=== PATIENT | female | born 1990 | race American Indian/Alaskan Native ===

== ENCOUNTER 2017-03-31 20:14 | Outpatient (CLI) | payer MEDICAID, OTHER ==
[2017-03-31 20:36] VITALS: BP 126/74
== END 2017-03-31 21:55 | disposition home or self-care (01) ==
LOC: TRG 20:14
PROVIDERS: ATTEND Obstetrics & Gynecology
DX: O47.1 False labor at or after 37 completed weeks of gestation (principal); Z3A.37 37 weeks gestation of pregnancy
CPT/HCPCS: 59025

== ENCOUNTER 2017-07-29 06:48 | Emergency (ER) | payer MEDICAID ==
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
[2017-07-29] MEDS ORDERED: TORADOL IM ONE (08:17)
[2017-07-29 09:09] VITALS: BP 130/72
== END 2017-07-29 09:08 | disposition home or self-care (01) ==
LOC: ED 06:48
DX: S90.02XA Contusion of left ankle, initial encounter (principal); S86.912A Strain of unspecified muscle(s) and tendon(s) at lower leg level, left leg, initial encounter; J45.909 Unspecified asthma, uncomplicated; V49.49XA Driver injured in collision with other motor vehicles in traffic accident, initial encounter; Y93.89 Activity, other specified; Y92.89 Other specified places as the place of occurrence of the external cause; Y99.8 Other external cause status
CPT/HCPCS: 96372; 99283; J1885

== ENCOUNTER 2017-08-09 23:53 | Emergency (ER) | payer MEDICAID ==
[2017-08-10] MEDS ORDERED: ASPIRIN PO ONE (00:49)
[2017-08-10] MEDS ORDERED: ZOFRAN ODT PO ONE (00:50)
[2017-08-10 01:31] LABS: BUN/Creatinine Ratio 40; Blood Urea Nitrogen 20 mg/dL (7-17); Calcium 9.4 mg/dL (8.4-10.2); Hemolysis Index 2
[2017-08-10 01:38] LABS: Basophils # (Auto) 0.1 K/mm3 (0.0-0.1); Basophils % (Auto) 0.6 % (0.0-1.8); Eosinophils # (Auto) 0.2 K/mm3 (0.0-0.4); Eosinophils % (Auto) 2.5 % (0.0-4.3); Hematocrit 36.4 % (30.3-42.9); Lymphocytes # (Auto) 2.3 K/mm3 (1.2-5.4); Lymphocytes % (Auto) 25.6 % (13.4-35.0); Mean Corpuscular HGB Conc 33 % (30-34); Mean Corpuscular Volume 78 fl (79-97); Monocytes # (Auto) 0.7 K/mm3 (0.0-0.8); Platelet Count 245 K/mm3 (140-440); Red Blood Count 4.67 M/mm3 (3.65-5.03); Red Cell Distribution Width 16.1 % (13.2-15.2)
[2017-08-10 01:45] LABS: Mean Corpuscular Hemoglobin 26 pg (28-32)
[2017-08-10 09:13] VITALS: BP 127/76
[2017-08-10] MEDS ORDERED: TORADOL IM ONE (10:05)
[2017-08-10] MEDS ORDERED: TORADOL IV ONE (10:29)
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
== END 2017-08-10 11:20 | disposition home or self-care (01) ==
LOC: ED 23:53
DX: S20.219A Contusion of unspecified front wall of thorax, initial encounter (principal); J45.909 Unspecified asthma, uncomplicated; Z98.51 Tubal ligation status; Z88.8 Allergy status to other drugs, medicaments and biological substances; F17.200 Nicotine dependence, unspecified, uncomplicated; X58.XXXA Exposure to other specified factors, initial encounter; Y93.89 Activity, other specified; Y92.89 Other specified places as the place of occurrence of the external cause; Y99.8 Other external cause status
CPT/HCPCS: 36415; 71260; 80048; 84484; 84703; 85025; 93005; 93010; 96372; 96374; 99284; J1885; Q9967; Q0162

== ENCOUNTER 2017-09-16 00:14 | Emergency (ER) | payer MEDICAID ==
[2017-09-16 00:50] VITALS: BP 116/74
[2017-09-16] MEDS ORDERED: ASPIRIN PO ONE (00:54)
[2017-09-16 01:22] LABS: Basophils # (Auto) 0.1 K/mm3 (0.0-0.1); Basophils % (Auto) 0.8 % (0.0-1.8); Eosinophils # (Auto) 0.3 K/mm3 (0.0-0.4); Eosinophils % (Auto) 3.4 % (0.0-4.3); Hematocrit 32.9 % (30.3-42.9); Hemoglobin 10.8 gm/dl (10.1-14.3); Lymphocytes # (Auto) 2.7 K/mm3 (1.2-5.4); Lymphocytes % (Auto) 30.9 % (13.4-35.0); Mean Corpuscular HGB Conc 33 % (30-34); Mean Corpuscular Volume 78 fl (79-97); Monocytes # (Auto) 0.8 K/mm3 (0.0-0.8); Monocytes % (Auto) 9.5 % (0.0-7.3); Platelet Count 309 K/mm3 (140-440); Red Cell Distribution Width 16.2 % (13.2-15.2)
[2017-09-16 01:36] LABS: BUN/Creatinine Ratio 40; Blood Urea Nitrogen 20 mg/dL (7-17); Hemolysis Index 49
[2017-09-16 01:53] LABS: Mean Corpuscular Hemoglobin 26 pg (28-32)
== END 2017-09-16 04:00 | disposition left against medical advice (07) ==
LOC: ED 00:14
DX: R07.89 Other chest pain (principal); Z53.21 Procedure and treatment not carried out due to patient leaving prior to being seen by health care provider
CPT/HCPCS: 36415; 80048; 84484; 84703; 85025; 93005; 93010

== ENCOUNTER 2017-09-16 04:43 | Emergency (ER) | payer MEDICAID ==
--- NOTE | 2017-09-16 06:46 | Emergency Department Report ---
ED Abdominal Pain HPI - General Chief Complaint: Abdominal Pain Stated Complaint: ABN VAG BLEEDING Time Seen by Provider: 09/16/17 06:25 Source: patient Mode of arrival: Ambulatory Limitations: No Limitations - History of Present Illness Initial Comments: There is a 26-year-old female that presents to emergency room with complaints of intermittent abdominal pain and intermittent vaginal bleeding over the past 3 months. Patient states the pain is worse when she is on her cycle. Patient states the pain has been as bad as 10 out of 10 but is fluctuating. Patient states the pain right now is a 6 out of 10. Patient states the pain is always in left lower quadrant. Patient states she is not on any control at this time. Patient states she had a child 3 months ago. Patient complains of a occasional nausea and vomiting as well -: Gradual, month(s) (pain started 3 months ago) Location: LLQ Radiation: none Migration to: no migration Severity scale (0 -10): 6 Quality: stabbing, aching Consistency: intermittent Improves With: rest Worsens With: movement Context: recent surgery/procedure Associated Symptoms: denies: nausea, vomiting, diarrhea, fever, chills, constipation, dysuria, hematemesis, hematochezia, melena, hematuria, anorexia, syncope - Related Data LMP (females 10-50): last week Home Medications Medication Instructions Recorded Confirmed Last Taken SEROquel 100 mg PO HS 08/10/17 08/10/17 Unknown Previous Rx's Medication Instructions Recorded Last Taken Type Ibuprofen 800 mg PO Q8H #30 tablet 08/10/17 Unknown Rx Acetaminophen/Codeine [Tylenol 1 tab PO Q6H PRN #15 tab 09/16/17 Unknown Rx /Codeine # 3 tab] Allergies Allergy/AdvReac Type Severity Reaction Status Date / Time aripiprazole [From Abilify] Allergy Hives Verified 09/16/17 11:07 chlorpromazine Allergy Hives Verified 09/16/17 11:07 [From Thorazine] ED Review of Systems ROS: Stated complaint: ABN VAG BLEEDING Other details as noted in HPI Comment: All other systems reviewed and negative Constitutional: denies: chills, fever Eyes: denies: eye pain, eye discharge, vision change ENT: denies: ear pain, throat pain Respiratory: denies: cough, shortness of breath, wheezing Cardiovascular: denies: chest pain, palpitations Endocrine: no symptoms reported Gastrointestinal: abdominal pain, nausea, vomiting. denies: diarrhea Genitourinary: denies: urgency, dysuria, discharge Musculoskeletal: denies: back pain, joint swelling, arthralgia Skin: denies: rash, lesions Neurological: denies: headache, weakness, paresthesias Psychiatric: denies: anxiety, depression Hematological/Lymphatic: denies: easy bleeding, easy bruising ED Past Medical Hx - Past Medical History Previous Medical History?: Yes Hx Hypertension: No Hx Diabetes: No Hx Deep Vein Thrombosis: No Hx Renal Disease: No Hx Sickle Cell Disease: No Hx Seizures: Yes (last seizures 3 mths ago) Hx Asthma: Yes Hx HIV: No Additional medical history: fibroids - Surgical History Past Surgical History?: Yes Hx Cholecystectomy: Yes Additional Surgical History: Tubal Ligation - Social History Smoking Status: Never Smoker Substance Use Type: None - Medications Home Medications: Home Medications Medication Instructions Recorded Confirmed Last Taken Type Ibuprofen 800 mg PO Q8H #30 tablet 08/10/17 Unknown Rx SEROquel 100 mg PO HS 08/10/17 08/10/17 Unknown History Acetaminophen/Codeine [Tylenol 1 tab PO Q6H PRN #15 tab 09/16/17 Unknown Rx /Codeine # 3 tab] ED Physical Exam - General Limitations: No Limitations General appearance: alert, in no apparent distress - Head Head exam: Present: atraumatic, normocephalic - Eye Eye exam: Present: normal appearance - ENT ENT exam: Present: mucous membranes moist - Neck Neck exam: Present: normal inspection - Respiratory Respiratory exam: Present: normal lung sounds bilaterally. Absent: respiratory distress - Cardiovascular Cardiovascular Exam: Present: regular rate, normal rhythm. Absent: systolic murmur, diastolic murmur, rubs, gallop - GI/Abdominal GI/Abdominal exam: Present: soft, tenderness (left lower quadrant tenderness), normal bowel sounds - Extremities Exam Extremities exam: Present: normal inspection - Back Exam Back exam: Present: normal inspection - Neurological Exam Neurological exam: Present: alert, oriented X3 - Psychiatric Psychiatric exam: Present: normal affect, normal mood - Skin Skin exam: Present: warm, dry, intact, normal color. Absent: rash ED Course Vital Signs 09/16/17 09/16/17 09/16/17 04:59 06:24 06:50 Temperature 97.4 F L Pulse Rate 68 79 Respiratory 14 16 18 Rate Blood Pressure 129/83 Blood Pressure 127/68 [Right] O2 Sat by Pulse 99 98 Oximetry 09/16/17 11:39 Temperature 98.9 F Pulse Rate 85 Respiratory 16 Rate Blood Pressure Blood Pressure 135/85 [Right] O2 Sat by Pulse 98 Oximetry - Reevaluation(s) Reevaluation #1: Discussed results of blood and ultrasound with the patient. Due to the fact the patient had such severe left lower quadrant pain and tenderness we'll move forward with a CAT scan. Patient agrees with plan of care. 09/16/17 08:26 Reevaluation #2: Costal results with patient. Patient stable for discharge. We'll discharge patient home with medications and prescriptions. Patient given all discharge instructions. Patient instructed to follow-up with SENIOR MECHANICAL PROJECT ENGINEER for further evaluation and treatment of irregular menstrual period and uterine fibroid. 09/16/17 11:08 ED Medical Decision Making - Radiology Data Radiology results: report reviewed Ultrasound and CT of abdomen discussed and reviewed with patient - Medical Decision Making 26-year-old female that presents emergency room with 3 months long of abdominal pain and irregular vaginal bleeding. Patient found to have on ultrasound either fibroids. CT scan was negative for acute findings. - Differential Diagnosis uterine fibroid. Abdominal pain. Irregular vaginal bleeding. Critical care attestation.: If time is entered above; I have spent that time in minutes in the direct care of this critically ill patient, excluding procedure time. ED Disposition Clinical Impression: Vaginal bleeding, Uterine fibroid Abdominal pain Qualifiers: Abdominal location: left lower quadrant Qualified Code(s): R10.32 - Left lower quadrant pain Disposition: TO HOME OR SELFCARE Is pt being admited?: No Does the pt Need Aspirin: No Condition: Stable Instructions: Uterine Fibroids (ED), Abdominal Pain (ED) Additional Instructions: Patient to follow-up with primary care in 3-5 days. Patient to follow-up with GEOPHYSICS SCIENTIST in 2-4 days. Patient to increase water and rest. Patient to take meds as directed. Patient to take Tylenol or ibuprofen when necessary for pain. Patient to take vitamin. Prescriptions: Acetaminophen/Codeine [Tylenol /Codeine # 3 tab] 1 tab PO Q6H PRN #15 tab PRN Reason: Pain Referrals: PRIMARY CARE, [Primary Care Provider] - 3-5 Days Time of Disposition: 11:10
--- NOTE | 2017-09-16 07:19 | Ultrasound Report ---
FINAL REPORT EXAM: US PELVIC COMPLETE HISTORY: abnl vaginal bleeding TECHNIQUE: Transabdominal imaging was obtained of the pelvis. FINDINGS: The uterus is anteverted measuring 8.7 cm x 5.5 cm x 6.1 cm. The myometrium is homogeneous. The endometrial thickness is 4.9 mm. There are 2 fibroids along the fundus the larger measuring to 2 cm in diameter. Free fluid is not seen. The left ovary is normal size contour and echotexture measuring 3.2 cm x 2.5 cm x 2.8 cm. The right ovary is normal size contour and echotexture measuring 3.5 cm x 2.2 cm x 2.3 cm. There are benign-appearing follicles in the right ovary. IMPRESSION: Two small fibroids in the fundus of the uterus noted. Normal-appearing endometrium. Normal ovaries.
--- NOTE | 2017-09-16 07:29 | Ultrasound Report ---
FINAL REPORT EXAM: US TRANSVAGINAL HISTORY: abnl vaginal bleeding TECHNIQUE: Transvaginal imaging was obtained of the pelvis. FINDINGS: The uterus is anteverted measuring 8.7 cm x 5.5 cm x 6.1 cm. The myometrium is inhomogeneous. The abdomen thickness is 4.9 mm. There are 2 small fibroids along the fundus of the uterus the larger measuring 2 cm in diameter. Free fluid is not seen. Both ovaries are appropriate size contour and echotexture revealing benign follicles bilaterally. The right ovary measures 3.5 cm x 2.2 cm x 2.3 cm. The left ovary measures 3.2 cm x 2.5 cm x 2.8 cm. IMPRESSION: Two small fibroids in the fundus of the uterus the larger measuring 2 cm in diameter. Normal-appearing endometrium measuring 4.9 mm in thickness. Normal ovaries.
--- NOTE | 2017-09-16 10:34 | Cat Scan Report ---
CT ABDOMEN PELVIS WITH CONTRAST: HISTORY: abdominal pain. COMPARISON: Pelvic ultrasound performed the same day. TECHNIQUE: Helical CT in 1.25mm intervals following IV contrast. Sagittal and coronal reconstructions. FINDINGS: Lung bases: Normal. Liver: Normal. Biliary system: Cholecystectomy. No biliary dilatation is appreciated. Pancreas: Normal. Spleen: Normal. Kidneys/ureters/bladder: Normal. Adrenal glands: Normal. Aorta: Normal. Intestines: Evaluation of the GI tract is limited without oral contrast. There is no evidence for obstruction or focal inflammation. The appendix is not confidently identified, correlate with the patient's surgical history. If further evaluation of the GI tract is needed, repeat exam with oral contrast would be helpful. Appendix: Normal. Pelvic viscera: Within normal limits. Small fibroids seen on ultrasound are not appreciated on CT. Ascites: None. Adenopathy: None. Musculoskeletal: Normal. IMPRESSION: No acute process is identified in the abdomen or pelvis.
[2017-09-16] MEDS ORDERED: TORADOL IV ONE (10:49)
[2017-09-16] MEDS ORDERED: TORADOL ONE ×2 (11:16)
[2017-09-16 11:39] VITALS: BP 135/85
== END 2017-09-16 11:43 | disposition home or self-care (01) ==
LOC: ED 04:43
DX: D25.9 Leiomyoma of uterus, unspecified (principal); Z88.8 Allergy status to other drugs, medicaments and biological substances
CPT/HCPCS: 36415; 74177; 76830; 76856; 84484; 96374; 99284; J1885; Q9967

== ENCOUNTER 2017-09-17 08:27 | Emergency (ER) | payer MEDICAID ==
[2017-09-17 08:41] VITALS: BP 125/70
[2017-09-17] MEDS ORDERED: ULTRAM PO ONE (09:27)
[2017-09-17 10:04] LABS: Bacteria,Urine 1+ /HPF (Negative); Bilirubin,Urine NEG (Negative); Blood,Urine MOD (Negative); Color,Urine Yellow (Yellow); Mucus,Urine 3+ /HPF; Protein,Urine <15 mg/dL mg/dL (Negative); Urobilinogen,Urine < 2.0 mg/dL (<2.0)
[2017-09-17 10:08] LABS: Alanine Aminotransferase 13 units/L (7-56); Albumin 4.2 g/dL (3.9-5)
[2017-09-17 10:55] LABS: Bilirubin,Direct < 0.2 mg/dL (0-0.2)
--- NOTE | 2017-09-17 12:15 | Emergency Department Report ---
Chief Complaint: Back Pain/Injury Stated Complaint: BACK/ABDOMINAL/CHEST PAIN Time Seen by Provider: 09/17/17 09:22 - HPI History of Present Illness: The patient is a 26-year-old female who presents for evaluation of abdominal and back pain. The patient reports 1 week of lower abdominal pain, radiating to the back, 10/10 in severity, crampy in quality, constant. The patient denies fever, chills, night sweats, diarrhea, blood in the stool, dark tarry stool, dysuria, hematuria, flank pain, genital discharge, inability to pass flatus. - Exam Vital Signs: Vital Signs 09/17/17 08:35 Temperature 98.9 F Pulse Rate 70 Respiratory 18 Rate Blood Pressure 125/70 O2 Sat by Pulse 100 Oximetry MSE screening note: Focused history and physical exam performed. Due to findings the following was ordered: ED Disposition for MSE Condition: Undetermined Referrals: PRIMARY CARE, [Primary Care Provider] - 3-5 Days
--- NOTE | 2017-09-17 12:37 | Emergency Department Report ---
ED Female HPI - General Chief complaint: Back Pain/Injury Stated complaint: BACK/ABDOMINAL/CHEST PAIN Time Seen by Provider: 09/17/17 09:22 Source: patient Mode of arrival: Ambulatory Limitations: No Limitations - History of Present Illness Initial comments: This is a 26-year-old -[place] female presents abnormal vaginal bleeding , lower abdominal, and back pain. Patient was seen in ER yesterday and diagnosed with fibroids and referred to [facility]. Patient reports trying to see [facility] yesterday and unable to receive an appointment. She reports abdominal pain for 1 week that is radiating to her back. Pain is a constant cramping that is 10 out of 10 on pain scale. The patient denies fever, chills, night sweats, diarrhea, blood in the stool, dark tarry stool, dysuria, hematuria, flank pain, genital discharge, inability to pass flatus. MD Complaint: vaginal bleeding, pelvic pain -: week(s) (one week) Location: other (lower abdomen) Radiation: L flank Severity: severe Severity scale (0 -10): 10 Quality: cramping, aching Consistency: constant Improves with: none Worsens with: none Are you Now?: No Last Menstrual Period: 09/14/17 EDC: 06/21/18 Associated Symptoms: vaginal bleeding, abdominal pain. denies: vaginal discharge, nausea/vomiting, fever/chills, headaches, loss of appetite, dysuria, hematuria, rash, seizure, shortness of breath, syncope, weakness - Related Data Sexually active: Yes : 4 Para: 4 A: 0 Home Medications Medication Instructions Recorded Confirmed Last Taken SEROquel 100 mg PO HS 08/10/17 08/10/17 Unknown Previous Rx's Medication Instructions Recorded Last Taken Type Ibuprofen 800 mg PO Q8H #30 tablet 08/10/17 Unknown Rx Acetaminophen/Codeine [Tylenol 1 tab PO Q6H PRN #15 tab 09/16/17 Unknown Rx /Codeine # 3 tab] Norgestimate-Ethinyl Estradiol 1 each PO DAILY #28 tablet 09/17/17 Unknown Rx [Sprintec 28 Day Tablet] Allergies Allergy/AdvReac Type Severity Reaction Status Date / Time aripiprazole [From [place]ic[place]ney] Allergy Hives Verified 09/16/17 16:35 chlorpromazine Allergy Hives Verified 09/16/17 16:35 [From Thorazine] ED Review of Systems ROS: Stated complaint: BACK/ABDOMINAL/CHEST PAIN Other details as noted in HPI Constitutional: no symptoms reported Respiratory: denies: cough, shortness of breath, wheezing Cardiovascular: denies: chest pain, palpitations Gastrointestinal: abdominal pain (cramping lower abdominal area). denies: nausea, vomiting, diarrhea, constipation Genitourinary: denies: urgency, dysuria, discharge Psychiatric: denies: anxiety, depression Hematological/Lymphatic: denies: easy bleeding, easy bruising ED Past Medical Hx - Past Medical History Previous Medical History?: Yes Hx Hypertension: No Hx Diabetes: No Hx Deep Vein Thrombosis: No Hx Renal Disease: No Hx Sickle Cell Disease: No Hx Seizures: Yes (last seizures 3 mths ago) Hx Asthma: Yes Hx HIV: No Additional medical history: fibroids - Surgical History Past Surgical History?: Yes Hx Cholecystectomy: Yes Additional Surgical History: Tubal Ligation - Social History Smoking Status: Never Smoker Substance Use Type: Non Opiate Pain - Medications Home Medications: Home Medications Medication Instructions Recorded Confirmed Last Taken Type Ibuprofen 800 mg PO Q8H #30 tablet 08/10/17 Unknown Rx SEROquel 100 mg PO HS 08/10/17 08/10/17 Unknown History Acetaminophen/Codeine [Tylenol 1 tab PO Q6H PRN #15 tab 09/16/17 Unknown Rx /Codeine # 3 tab] Norgestimate-Ethinyl Estradiol 1 each PO DAILY #28 tablet 09/17/17 Unknown Rx [Sprintec 28 Day Tablet] ED Physical Exam - General Limitations: No Limitations General appearance: alert, in no apparent distress - Respiratory Respiratory exam: Present: normal lung sounds bilaterally. Absent: respiratory distress - Cardiovascular Cardiovascular Exam: Present: regular rate, normal rhythm, normal heart sounds. Absent: systolic murmur, diastolic murmur, rubs, gallop - GI/Abdominal GI/Abdominal exam: Present: soft, normal bowel sounds. Absent: distended, tenderness, guarding, rebound, rigid, organomegaly, mass - Neurological Exam Neurological exam: Present: alert, oriented X3, normal gait - Psychiatric Psychiatric exam: Present: normal affect, normal mood - Skin Skin exam: Present: warm, dry, intact, normal color. Absent: rash ED Course Vital Signs 09/17/17 08:35 Temperature 98.9 F Pulse Rate 70 Respiratory 18 Rate Blood Pressure 125/70 O2 Sat by Pulse 100 Oximetry ED Medical Decision Making - Medical Decision Making 26 y.o. -[place] female that presents with lower abdominal cramping radiating to her low back and abnormal vaginal bleeding times one week. Patient examined by me and Dr. Correa and stable. No distress noted. Vitals stable. Normal assessment. Obtained a UA, LFT, and serum hCG, all unremarkable. Advised symptoms could be related to fibroids as discussed yesterday on ER visit. This starts Sprintec. Discussed risk and benefits of OC. Advised to follow up with [facility]. Discharged home. Continue taking NSAIDs for pain. Critical care attestation.: If time is entered above; I have spent that time in minutes in the direct care of this critically ill patient, excluding procedure time. ED Disposition Clinical Impression: Abnormal menstrual cycle Fibroids Qualifiers: Uterine leiomyoma location: unspecified location Qualified Code(s): D25.9 - Leiomyoma of uterus, unspecified Disposition: TO HOME OR SELFCARE Is pt being admited?: No Does the pt Need Aspirin: No Condition: Stable Instructions: Uterine Fibroids (ED), Control Pills (ED) Additional Instructions: Take 1 contraceptive pill daily around the same time. Follow-up with [facility] for management of fibroids. Take Tylenol, ibuprofen, or naproxen for pain management. Follow-up with primary care in 2-3 days. Prescriptions: Norgestimate-Ethinyl Estradiol [Sprintec 28 Day Tablet] 1 each PO DAILY #28 tablet Referrals: [facility] [Outside] - 3-5 Days [facility] [Provider Group] - 3-5 Days [facility] [Provider Group] - 3-5 Days JALEEL COLON MD [Staff Physician] - 3-5 Days Time of Disposition: 12:49 Print Language: KAZAKH
== END 2017-09-17 16:30 | disposition home or self-care (01) ==
LOC: ED 08:27
DX: N92.6 Irregular menstruation, unspecified (principal); D25.9 Leiomyoma of uterus, unspecified; J45.909 Unspecified asthma, uncomplicated; Z90.49 Acquired absence of other specified parts of digestive tract; Z98.51 Tubal ligation status; Z88.8 Allergy status to other drugs, medicaments and biological substances
CPT/HCPCS: 36415; 80074; 81001; 83690; 84703; 99283

== ENCOUNTER 2017-09-24 01:47 | Emergency (ER) | payer MEDICAID ==
[2017-09-24] MEDS ORDERED: ASPIRIN PO ONE (02:04)
[2017-09-24 04:19] LABS: Basophils % (Auto) 0.4 % (0.0-1.8); Eosinophils # (Auto) 0.3 K/mm3 (0.0-0.4); Eosinophils % (Auto) 3.9 % (0.0-4.3); Hematocrit 34.7 % (30.3-42.9); Hemoglobin 11.8 gm/dl (10.1-14.3); Lymphocytes # (Auto) 2.2 K/mm3 (1.2-5.4); Lymphocytes % (Auto) 33.9 % (13.4-35.0); Mean Corpuscular HGB Conc 34 % (30-34); Mean Corpuscular Hemoglobin 27 pg (28-32); Mean Corpuscular Volume 78 fl (79-97); Monocytes # (Auto) 0.6 K/mm3 (0.0-0.8); Monocytes % (Auto) 10.1 % (0.0-7.3); Platelet Count 305 K/mm3 (140-440); Red Blood Count 4.45 M/mm3 (3.65-5.03); Red Cell Distribution Width 16.7 % (13.2-15.2)
[2017-09-24 04:25] LABS: BUN/Creatinine Ratio 30; Blood Urea Nitrogen 15 mg/dL (7-17); Calcium 9.2 mg/dL (8.4-10.2); Hemolysis Index 2
--- NOTE | 2017-09-24 07:20 | Emergency Department Report ---
ED Chest Pain HPI - General Chief Complaint: Chest Pain Stated Complaint: CHEST PAIN, BACK THROW UPC Time Seen by Provider: 09/24/17 07:20 Source: patient Mode of arrival: Ambulatory Limitations: No Limitations - History of Present Illness Initial Comments: Patient says she started having chest pain last night. Chest pain is intermittent. She also denies any abdominal pain, nausea or vomiting. MD Complaint: chest pain -: Last night Onset: during rest Pain Radiation: none Severity: moderate Severity scale (0 -10): 5 Quality: sharp Consistency: constant Improves With: nothing Worsens With: nothing re: denies: nausea, vomting Other Symptoms: denies: cough Treatments Prior to Arrival: none Aspirin use within the Past 7 Days: (0) No - Related Data On Oral Contraceptives: No Home Medications Medication Instructions Recorded Confirmed Last Taken SEROquel 100 mg PO HS 08/10/17 08/10/17 Unknown Previous Rx's Medication Instructions Recorded Last Taken Type Ibuprofen 800 mg PO Q8H #30 tablet 08/10/17 Unknown Rx Acetaminophen/Codeine [Tylenol 1 tab PO Q6H PRN #15 tab 09/16/17 Unknown Rx /Codeine # 3 tab] Norgestimate-Ethinyl Estradiol 1 each PO DAILY #28 tablet 09/17/17 Unknown Rx [Sprintec 28 Day Tablet] Ibuprofen [Motrin] 800 mg PO Q8HR PRN #20 tablet 09/24/17 Unknown Rx Allergies Allergy/AdvReac Type Severity Reaction Status Date / Time aripiprazole [From Abilify] Allergy Hives Verified 09/16/17 16:35 chlorpromazine Allergy Hives Verified 09/16/17 16:35 [From Thorazine] Heart Score - HEART Score History: Slightly suspicious EKG: Normal Age: < 45 Risk factors: No known risk factors Troponin: < normal limit HEART Score: 0 - Critical Actions Critical Actions: 0-3 pts:0.9-1.7%risk of adverse cardiac event.Candidate for discharge ED Review of Systems ROS: Stated complaint: CHEST PAIN, BACK THROW UPC Other details as noted in HPI Comment: All other systems reviewed and negative Constitutional: denies: chills, fever Eyes: denies: vision change ENT: denies: ear pain Respiratory: shortness of breath. denies: cough Cardiovascular: chest pain. denies: palpitations Endocrine: no symptoms reported Gastrointestinal: denies: abdominal pain, nausea, vomiting, diarrhea Genitourinary: denies: urgency, frequency Musculoskeletal: denies: back pain, joint swelling Skin: denies: rash, change in color Neurological: denies: headache, weakness, numbness, paresthesias Psychiatric: denies: anxiety, depression Hematological/Lymphatic: denies: easy bleeding, easy bruising ED Past Medical Hx - Past Medical History Previous Medical History?: Yes Hx Hypertension: No Hx Diabetes: Yes Hx Deep Vein Thrombosis: No Hx Renal Disease: No Hx Sickle Cell Disease: No Hx Seizures: Yes (last seizures 3 mths ago) Hx Asthma: Yes Hx HIV: No Additional medical history: fibroids - Surgical History Past Surgical History?: Yes Hx Cholecystectomy: Yes Additional Surgical History: Tubal Ligation - Social History Smoking Status: Never Smoker Substance Use Type: Alcohol - Medications Home Medications: Home Medications Medication Instructions Recorded Confirmed Last Taken Type Ibuprofen 800 mg PO Q8H #30 tablet 08/10/17 Unknown Rx SEROquel 100 mg PO HS 08/10/17 08/10/17 Unknown History Acetaminophen/Codeine [Tylenol 1 tab PO Q6H PRN #15 tab 09/16/17 Unknown Rx /Codeine # 3 tab] Norgestimate-Ethinyl Estradiol 1 each PO DAILY #28 tablet 09/17/17 Unknown Rx [Sprintec 28 Day Tablet] Ibuprofen [Motrin] 800 mg PO Q8HR PRN #20 tablet 09/24/17 Unknown Rx ED Physical Exam - General Limitations: No Limitations General appearance: alert, in no apparent distress - Head Head exam: Present: atraumatic, normocephalic, normal inspection - Eye Eye exam: Present: normal appearance, PERRL, EOMI Pupils: Present: normal accommodation - ENT ENT exam: Present: normal exam, normal orophraynx, mucous membranes moist - Neck Neck exam: Present: normal inspection, full ROM. Absent: tenderness - Respiratory Respiratory exam: Present: normal lung sounds bilaterally. Absent: respiratory distress, wheezes, rhonchi - Cardiovascular Cardiovascular Exam: Present: regular rate, normal rhythm, normal heart sounds, other (Sternal Chest wall tenderness to palpation.) - GI/Abdominal GI/Abdominal exam: Present: soft, normal bowel sounds. Absent: distended, tenderness, guarding, rebound - Extremities Exam Extremities exam: Present: normal inspection, full ROM, normal capillary refill - Back Exam Back exam: Present: normal inspection, full ROM - Neurological Exam Neurological exam: Present: alert, oriented X3, CN II-XII intact - Psychiatric Psychiatric exam: Present: normal affect, normal mood - Skin Skin exam: Present: warm, dry, intact, normal color. Absent: rash ED Course Vital Signs 09/24/17 09/24/17 09/24/17 01:52 07:59 08:00 Temperature 97.9 F Pulse Rate 73 62 Respiratory 18 16 16 Rate Blood Pressure 114/79 Blood Pressure 120/75 [Right] O2 Sat by Pulse 98 99 Oximetry CESIA score - Cesia Score Age > 65: (0) No (neg CESIA score) Aspirin use within the Past 7 Days: (0) No 3 or more CAD Risk Factors: (0) No 2 or more Angina events in past 24 hrs: (0) No Known CAD with more than 50% Stenosis: (0) No Elevated Cardiac Markers: (0) No ST Deviation Greater than 0.5mm: (0) No CESIA Score: 0 ED Medical Decision Making - Lab Data Result diagrams: 09/24/17 02:38 09/24/17 02:38 - EKG Data -: EKG Interpreted by Ct EKG shows normal: sinus rhythm Rate: normal (65) - EKG Data When compared to previous EKG there are: no significant change Interpretation: normal EKG - Radiology Data Radiology results: report reviewed, image reviewed - Medical Decision Making Chest wall Pain. Critical care attestation.: If time is entered above; I have spent that time in minutes in the direct care of this critically ill patient, excluding procedure time. ED Disposition Clinical Impression: Costochondritis, Chest wall pain Chest pain Qualifiers: Chest pain type: unspecified Qualified Code(s): R07.9 - Chest pain, unspecified Disposition: TO HOME OR SELFCARE Is pt being admited?: No Does the pt Need Aspirin: Yes Condition: Stable Instructions: Chest Pain (ED) Additional Instructions: Please follow up with her primary doctor within the next 24 hours. Return to the emergency room if your condition worsens. Prescriptions: Ibuprofen [Motrin] 800 mg PO Q8HR PRN #20 tablet PRN Reason: Pain Referrals: PRIMARY CARE,MD [Primary Care Provider] - 3-5 Days Time of Disposition: 09:40
--- NOTE | 2017-09-24 09:52 | XRay Report ---
Chest 2 views: History: Chest pain. Findings: Normal cardiomediastinal silhouette. Trachea is midline. No consolidation, pneumothorax or pleural effusion. Impression: No acute cardiopulmonary findings.
[2017-09-24 09:53] VITALS: BP 116/79
== END 2017-09-24 09:53 | disposition home or self-care (01) ==
LOC: ED 01:47
DX: M94.0 Chondrocostal junction syndrome [Tietze] (principal); R07.89 Other chest pain; E11.9 Type 2 diabetes mellitus without complications; J45.909 Unspecified asthma, uncomplicated; Z98.51 Tubal ligation status; Z88.8 Allergy status to other drugs, medicaments and biological substances; Z90.49 Acquired absence of other specified parts of digestive tract
CPT/HCPCS: 36415; 71046; 80048; 83880; 84484; 85025; 85379; 93005; 93010

== ENCOUNTER 2018-07-10 00:41 | Emergency (ER) | payer MEDICAID ==
[2018-07-10 01:36] LABS: Basophils # (Auto) 0.1 K/mm3 (0.0-0.1); Basophils % (Auto) 0.6 % (0.0-1.8); Eosinophils # (Auto) 0.4 K/mm3 (0.0-0.4); Eosinophils % (Auto) 4.2 % (0.0-4.3); Hematocrit 35.1 % (30.3-42.9); Hemoglobin 11.6 gm/dl (10.1-14.3); Lymphocytes # (Auto) 2.4 K/mm3 (1.2-5.4); Mean Corpuscular HGB Conc 33 % (30-34); Mean Corpuscular Volume 81 fl (79-97); Monocytes # (Auto) 0.7 K/mm3 (0.0-0.8); Monocytes % (Auto) 7.7 % (0.0-7.3); Platelet Count 246 K/mm3 (140-440); Red Blood Count 4.32 M/mm3 (3.65-5.03); Red Cell Distribution Width 16.9 % (13.2-15.2)
[2018-07-10] MEDS ORDERED: TORADOL IM ONE (03:47)
--- NOTE | 2018-07-10 03:57 | Emergency Department Report ---
ED Female HPI - General Chief complaint: Vaginal Bleeding Stated complaint: VAGINAL BLEEDING Time Seen by Provider: 07/10/18 03:46 Source: patient, EMS Mode of arrival: Ambulatory Limitations: No Limitations - History of Present Illness Initial comments: pt is s 27 y/o aaf with hx of Uterine fibroids who presents for same with vaginal bleeding x 1 days vaginal bleeding is resolved but cramping remains 4/10 per patient patient is followed by [facility] but she has not has tx sincd 2016 , usual tx now is ibuprofen otc but not working today , there is no fever or chills no n/v pt states not sexually active. MD Complaint: vaginal bleeding Onset/Timin -: days(s) Severity: moderate Severity scale (0 -10): 5 Quality: cramping Consistency: intermittent Improves with: none Worsens with: movement Are you Now?: No Last Menstrual Period: 07/08/18 EDC: 04/14/19 Associated Symptoms: vaginal bleeding - Related Data Sexually active: No Home Medications Medication Instructions Recorded Confirmed Last Taken SEROquel 100 mg PO HS 08/10/17 08/10/17 Unknown Previous Rx's Medication Instructions Recorded Last Taken Type Ibuprofen 800 mg PO Q8H #30 tablet 08/10/17 Unknown Rx Acetaminophen/Codeine [Tylenol 1 tab PO Q6H PRN #15 tab 09/16/17 Unknown Rx /Codeine # 3 tab] Norgestimate-Ethinyl Estradiol 1 each PO DAILY #28 tablet 09/17/17 Unknown Rx [Sprintec 28 Day Tablet] Ibuprofen [Motrin] 800 mg PO Q8HR PRN #20 tablet 09/24/17 Unknown Rx Tramadol HCl [Ultram] 50 mg PO Q6H PRN #12 tablet 07/10/18 Unknown Rx Allergies Allergy/AdvReac Type Severity Reaction Status Date / Time aripiprazole [From Abilify] Allergy Hives Verified 09/16/17 16:35 chlorpromazine Allergy Hives Verified 09/16/17 16:35 [From Thorazine] ED Review of Systems ROS: Stated complaint: VAGINAL BLEEDING Other details as noted in HPI Constitutional: denies: chills, fever Eyes: denies: eye pain, eye discharge, vision change ENT: denies: ear pain, throat pain Respiratory: denies: cough, shortness of breath, wheezing Cardiovascular: denies: chest pain, palpitations Endocrine: no symptoms reported Gastrointestinal: denies: abdominal pain, nausea, diarrhea Genitourinary: other (vaginal bleeding cramping ). denies: urgency, dysuria, discharge Musculoskeletal: denies: back pain, joint swelling, arthralgia Skin: denies: rash, lesions Neurological: denies: headache, weakness, paresthesias Psychiatric: denies: anxiety, depression Hematological/Lymphatic: denies: easy bleeding, easy bruising ED Past Medical Hx - Past Medical History Hx Hypertension: No Hx Diabetes: Yes Hx Deep Vein Thrombosis: No Hx Renal Disease: No Hx Sickle Cell Disease: No Hx Seizures: Yes (last seizures 3 mths ago) Hx Psychiatric Treatment: Yes (Bipolar, Schizophrenia) Hx Asthma: Yes Hx HIV: No Additional medical history: fibroids, Obesity - Surgical History Hx Cholecystectomy: Yes Additional Surgical History: Tubal Ligation - Social History Smoking Status: Current Every Day Smoker Substance Use Type: Marijuana - Medications Home Medications: Home Medications Medication Instructions Recorded Confirmed Last Taken Type Ibuprofen 800 mg PO Q8H #30 tablet 08/10/17 Unknown Rx SEROquel 100 mg PO HS 08/10/17 08/10/17 Unknown History Acetaminophen/Codeine [Tylenol 1 tab PO Q6H PRN #15 tab 09/16/17 Unknown Rx /Codeine # 3 tab] Norgestimate-Ethinyl Estradiol 1 each PO DAILY #28 tablet 09/17/17 Unknown Rx [Sprintec 28 Day Tablet] Ibuprofen [Motrin] 800 mg PO Q8HR PRN #20 tablet 09/24/17 Unknown Rx Tramadol HCl [Ultram] 50 mg PO Q6H PRN #12 tablet 07/10/18 Unknown Rx ED Physical Exam - General Limitations: No Limitations General appearance: alert, in no apparent distress - Head Head exam: Present: atraumatic, normocephalic - Eye Eye exam: Present: normal appearance, PERRL, EOMI Pupils: Present: normal accommodation - ENT ENT exam: Present: mucous membranes moist - Neck Neck exam: Present: normal inspection, full ROM. Absent: lymphadenopathy - Respiratory Respiratory exam: Present: normal lung sounds bilaterally. Absent: respiratory distress, wheezes, stridor, chest wall tenderness - Cardiovascular Cardiovascular Exam: Present: regular rate, normal rhythm, normal heart sounds. Absent: systolic murmur, diastolic murmur, rubs, gallop - GI/Abdominal GI/Abdominal exam: Present: soft, normal bowel sounds. Absent: tenderness, rebo und, bruit, hernia - Rectal Rectal exam: Present: deferred - Extremities Exam Extremities exam: Present: normal inspection - Back Exam Back exam: Present: normal inspection, full ROM. Absent: tenderness, CVA tenderness (R), muscle spasm, paraspinal tenderness, rash noted - Neurological Exam Neurological exam: Present: alert, oriented X3, CN II-XII intact, normal gait, reflexes normal - Psychiatric Psychiatric exam: Present: normal affect, normal mood - Skin Skin exam: Present: warm, dry, intact, normal color. Absent: rash ED Course Vital Signs 07/10/18 07/10/18 00:53 01:02 Temperature 98.0 F 98 F Pulse Rate 73 73 Respiratory 18 16 Rate Blood Pressure 135/75 Blood Pressure 135/75 [Left] O2 Sat by Pulse 98 98 Oximetry ED Medical Decision Making - Lab Data Result diagrams: 07/10/18 01:14 Labs 07/10/18 07/10/18 07/10/18 01:14 01:14 04:00 WBC 9.1 RBC 4.32 Hgb 11.6 Hct 35.1 MCV 81 MCH 27 L MCHC 33 RDW 16.9 H Plt Count 246 Lymph % (Auto) 26.0 [place] % (Auto) 7.7 H Eos % (Auto) 4.2 Baso % (Auto) 0.6 Lymph # 2.4 [place] # 0.7 Eos # 0.4 Baso # 0.1 Seg Neutrophils % 61.5 Seg Neutrophils # 5.6 HCG, Qual Negative Urine Color Yellow Urine Turbidity Clear Urine pH 5.0 Ur Specific [place] 1.028 Urine Protein <15 mg/dl Urine Glucose (UA) Neg Urine Ketones Neg Urine Blood Neg Urine Nitrite Neg Urine Bilirubin Neg Urine Urobilinogen < 2.0 Ur Leukocyte Esterase Neg Urine WBC (Auto) 1.0 Urine RBC (Auto) < 1.0 U Epithel Cells (Auto) 2.0 Urine Mucus 1+ - Medical Decision Making ua normal, cbc normal, hcg neg, pain improve with toradol plan ultram prn, follow up with obstetrics/gynecology nurse in 2 days given referral to same pt verbalized agreement and understanding of discharge plan. Critical care attestation.: If time is entered above; I have spent that time in minutes in the direct care of this critically ill patient, excluding procedure time. ED Disposition Clinical Impression: Abnormal uterine bleeding (AUB), History of uterine fibroid Disposition: TO HOME OR SELFCARE Is pt being admited?: No Does the pt Need Aspirin: No Condition: Stable Instructions: Uterine Fibroids (ED) Prescriptions: Tramadol HCl [Ultram] 50 mg PO Q6H PRN #12 tablet PRN Reason: Pain , Severe (7-10) Referrals: PRIMARY CARE, [Primary Care Provider] - 3-5 Days Forms: Work/School Release Form(ED) Time of Disposition: 05:12
[2018-07-10 04:58] LABS: Bilirubin,Urine NEG (Negative); Blood,Urine NEG (Negative); Color,Urine Yellow (Yellow); Mucus,Urine 1+ /HPF; Protein,Urine <15 mg/dL mg/dL (Negative); RBC,Urine < 1.0 /HPF (0.0-6.0); Urobilinogen,Urine < 2.0 mg/dL (<2.0)
[2018-07-10 07:05] VITALS: BP 126/86
== END 2018-07-10 05:15 | disposition home or self-care (01) ==
LOC: ED 00:41
DX: N93.8 Other specified abnormal uterine and vaginal bleeding (principal); D25.9 Leiomyoma of uterus, unspecified; E11.9 Type 2 diabetes mellitus without complications; F31.9 Bipolar disorder, unspecified; F20.9 Schizophrenia, unspecified; J45.909 Unspecified asthma, uncomplicated; F17.200 Nicotine dependence, unspecified, uncomplicated; F12.10 Cannabis abuse, uncomplicated; Z98.51 Tubal ligation status; Z90.49 Acquired absence of other specified parts of digestive tract; Z88.8 Allergy status to other drugs, medicaments and biological substances
CPT/HCPCS: 36415; 81001; 84703; 85025; 96372; 99284; J1885

== ENCOUNTER 2018-08-20 01:20 | Emergency (ER) | payer MEDICAID ==
[2018-08-20] MEDS ORDERED: TYLENOL PO ONE (01:44)
[2018-08-20] MEDS ORDERED: TYLENOL ONE (01:48)
[2018-08-20 04:45] LABS: Bilirubin,Urine NEG (Negative); Blood,Urine NEG (Negative); Color,Urine Yellow (Yellow); Mucus,Urine 3+ /HPF; Protein,Urine <15 mg/dL mg/dL (Negative); Urobilinogen,Urine < 2.0 mg/dL (<2.0)
[2018-08-20 05:07] LABS: HCG Qualitative,Urine Negative (Negative)
--- NOTE | 2018-08-20 05:36 | Emergency Department Report ---
ED General Adult HPI - General Chief complaint: Pain General Stated complaint: BODYACHE Time Seen by Provider: 08/20/18 04:35 Source: patient, family Mode of arrival: Ambulatory Limitations: No Limitations - History of Present Illness Initial comments: There is a 27-year-old female who presents for generalized body aches with urinary frequency and urgency 3 days to his no fevers chills no abdominal pain no nausea vomiting symptoms are exacerbated by nothing symptoms are relieved by nothing patient noted staying with urine 2 days ago there is no vaginal discharge no fevers no chills no nausea vomiting Onset/Timin -: days(s) Location: abdomen Radiation: other (superpubic ) Severity scale (0 -10): 5 Quality: burning Consistency: intermittent Improves with: none Worsens with: none Treatments Prior to Arrival: none - Related Data Home Medications Medication Instructions Recorded Confirmed Last Taken SEROquel 100 mg PO HS 08/10/17 08/10/17 Unknown Previous Rx's Medication Instructions Recorded Last Taken Type Ibuprofen 800 mg PO Q8H #30 tablet 08/10/17 Unknown Rx Acetaminophen/Codeine [Tylenol 1 tab PO Q6H PRN #15 tab 09/16/17 Unknown Rx /Codeine # 3 tab] Norgestimate-Ethinyl Estradiol 1 each PO DAILY #28 tablet 09/17/17 Unknown Rx [Sprintec 28 Day Tablet] Ibuprofen [Motrin] 800 mg PO Q8HR PRN #20 tablet 09/24/17 Unknown Rx Tramadol HCl [Ultram] 50 mg PO Q6H PRN #12 tablet 07/10/18 Unknown Rx Ibuprofen 800 mg PO TID PRN #30 tablet 08/20/18 Unknown Rx Nitrofurantoin Monohyd/M-Cryst 100 mg PO BID 7 Days #14 capsule 08/20/18 Unknown Rx [Macrobid 100 mg Capsule] Allergies Allergy/AdvReac Type Severity Reaction Status Date / Time aripiprazole [From Abilify] Allergy Hives Verified 09/16/17 16:35 chlorpromazine Allergy Hives Verified 09/16/17 16:35 [From Thorazine] ED Review of Systems ROS: Stated complaint: BODYACHE Other details as noted in HPI Constitutional: denies: chills, fever Eyes: denies: eye pain, eye discharge, vision change ENT: congestion. denies: ear pain, throat pain Respiratory: denies: cough, shortness of breath, wheezing Cardiovascular: denies: chest pain, palpitations Endocrine: no symptoms reported Gastrointestinal: denies: abdominal pain, nausea, vomiting, diarrhea Genitourinary: urgency, frequency. denies: dysuria, hematuria, discharge, dyspa reunia Musculoskeletal: back pain Skin: denies: rash, lesions Neurological: denies: headache, weakness, paresthesias Psychiatric: denies: anxiety, depression Hematological/Lymphatic: denies: easy bleeding, easy bruising ED Past Medical Hx - Past Medical History Previous Medical History?: Yes Hx Hypertension: No Hx Diabetes: Yes Hx Deep Vein Thrombosis: No Hx Renal Disease: No Hx Sickle Cell Disease: No Hx Seizures: Yes (last seizures 3 mths ago) Hx Psychiatric Treatment: Yes (Bipolar, Schizophrenia) Hx Asthma: Yes Hx HIV: No Additional medical history: fibroids, Obesity - Surgical History Past Surgical History?: Yes Hx Cholecystectomy: Yes Additional Surgical History: Tubal Ligation - Social History Smoking Status: Current Every Day Smoker Substance Use Type: None - Medications Home Medications: Home Medications Medication Instructions Recorded Confirmed Last Taken Type Ibuprofen 800 mg PO Q8H #30 tablet 08/10/17 Unknown Rx SEROquel 100 mg PO HS 18 08/10/17 Unknown History Acetaminophen/Codeine [Tylenol 1 tab PO Q6H PRN #15 tab 09/16/17 Unknown Rx /Codeine # 3 tab] Norgestimate-Ethinyl Estradiol 1 each PO DAILY #28 tablet 09/17/17 Unknown Rx [Sprintec 28 Day Tablet] Ibuprofen [Motrin] 800 mg PO Q8HR PRN #20 tablet 09/24/17 Unknown Rx Tramadol HCl [Ultram] 50 mg PO Q6H PRN #12 tablet 07/10/18 Unknown Rx Ibuprofen 800 mg PO TID PRN #30 tablet 08/20/18 Unknown Rx Nitrofurantoin Monohyd/M-Cryst 100 mg PO BID 7 Days #14 capsule 08/20/18 Unknown Rx [Macrobid 100 mg Capsule] ED Physical Exam - General Limitations: No Limitations General appearance: alert, in no apparent distress - Head Head exam: Present: atraumatic, normocephalic - Eye Eye exam: Present: normal appearance, PERRL, EOMI Pupils: Present: normal accommodation - ENT ENT exam: Present: normal exam, mucous membranes moist - Neck Neck exam: Present: normal inspection, full ROM. Absent: tenderness, meningismus, lymphadenopathy, thyromegaly - Respiratory Respiratory exam: Present: normal lung sounds bilaterally, chest wall tenderness. Absent: respiratory distress, wheezes, stridor - Cardiovascular Cardiovascular Exam: Present: normal rhythm, normal heart sounds. Absent: systolic murmur, diastolic murmur, rubs, gallop - GI/Abdominal GI/Abdominal exam: Present: soft, normal bowel sounds, mass. Absent: distended, tenderness, guarding, rebound, rigid, bruit, pulsatile mass, hernia - Rectal Rectal exam: Present: deferred - Extremities Exam Extremities exam: Present: normal inspection, full ROM, normal capillary refill. Absent: tenderness, pedal edema, joint swelling, calf tenderness - Back Exam Back exam: Present: normal inspection, full ROM. Absent: tenderness, CVA tenderness (R), CVA tenderness (L), muscle spasm, paraspinal tenderness, rash noted - Neurological Exam Neurological exam: Present: alert, oriented X3, CN II-XII intact, normal gait, reflexes normal. Absent: motor sensory deficit - Psychiatric Psychiatric exam: Present: normal affect, normal mood - Skin Skin exam: Present: warm, dry, intact, normal color. Absent: rash ED Course Vital Signs 08/20/18 08/20/18 01:39 02:47 Temperature 97.5 F L Pulse Rate 91 H Respiratory 18 18 Rate Blood Pressure 137/80 O2 Sat by Pulse 100 Oximetry ED Medical Decision Making - Lab Data Labs 08/20/18 04:25 Urine Color Yellow Urine Turbidity Slightly-cloudy Urine pH 5.0 Ur Specific [place] 1.024 Urine Protein <15 mg/dl Urine Glucose (UA) Neg Urine Ketones Neg Urine Blood Neg Urine Nitrite Neg Urine Bilirubin Neg Urine Urobilinogen < 2.0 Ur Leukocyte Esterase Mod Urine WBC (Auto) 5.0 Urine RBC (Auto) 4.0 U Epithel Cells (Auto) 6.0 Urine Mucus 3+ Urine HCG, Qual Negative - Medical Decision Making exam normal no acute finding ,mild surperpubic pain subjectivly , ua: mod leuk wbc, rbc, plan : macrobid , ibuprofen , follow up with pcp in 2-3 days return to ed if symptom worsen. Critical care attestation.: If time is entered above; I have spent that time in minutes in the direct care of this critically ill patient, excluding procedure time. ED Disposition Clinical Impression: UTI (urinary tract infection) Qualifiers: Urinary tract infection type: acute cystitis Hematuria presence: without hematuria Qualified Code(s): N30.00 - Acute cystitis without hematuria Disposition: TO HOME OR SELFCARE Is pt being admited?: No Does the pt Need Aspirin: No Condition: Stable Instructions: Urinary Tract Infection in Women (ED) Prescriptions: Ibuprofen 800 mg PO TID PRN #30 tablet PRN Reason: Pain , Severe (7-10) Nitrofurantoin Monohyd/M-Cryst [Macrobid 100 mg Capsule] 100 mg PO BID 7 Days #14 capsule Referrals: SANTHOSH BALDERRAMA MD [Primary Care Provider] - 3-5 Days Forms: Work/School Release Form(ED) Time of Disposition: 05:44
[2018-08-20 05:52] VITALS: BP 107/57
== END 2018-08-20 05:50 | disposition home or self-care (01) ==
LOC: ED 01:20
DX: N39.0 Urinary tract infection, site not specified (principal); M79.18 Myalgia, other site; F31.9 Bipolar disorder, unspecified; E11.9 Type 2 diabetes mellitus without complications; F20.9 Schizophrenia, unspecified; J45.909 Unspecified asthma, uncomplicated; E66.9 Obesity, unspecified; F17.200 Nicotine dependence, unspecified, uncomplicated; Z90.49 Acquired absence of other specified parts of digestive tract; Z98.51 Tubal ligation status; Z88.8 Allergy status to other drugs, medicaments and biological substances
CPT/HCPCS: 36415; 80048; 80164; 80307; 80320; 81001; 81025; 85025; 87086; 96372; 99285; G0480; J1885

== ENCOUNTER 2018-08-20 07:53 | Emergency (ER) | payer MEDICAID ==
[2018-08-20 08:02] VITALS: BP 119/74
[2018-08-20] MEDS ORDERED: TORADOL IM ONE (09:26)
--- NOTE | 2018-08-20 09:26 | Emergency Department Report ---
ED General Adult HPI - General Chief complaint: Urogenital-Female Stated complaint: VIKI/STOMACH PAIN Time Seen by Provider: 08/20/18 09:19 Source: patient Mode of arrival: Ambulatory Limitations: No Limitations - History of Present Illness Initial comments: Patient is 27-year-old female with history of schizophrenia. Patient presented to the ER complaining of pelvic pain, increased urinary frequency and dysuria for the last 2-3 days. Patient was seen here this morning and diagnosed with a UTI and given Macrobid but patient did not feel however medication and came back because she cannot tolerate the pain. Patient stated that she had a history of fibroid. Patient denied any vaginal bleeding or vaginal discharge. No fever or chills. - Related Data Home Medications Medication Instructions Recorded Confirmed Last Taken Divalproex ER [DepaKOTE ER] 1,000 mg PO QDAY 08/20/18 08/20/18 08/20/18 Haloperidol [Haldol] 5 mg PO QHS 08/20/18 08/20/18 08/20/18 Ziprasidone [Geodon] 60 mg PO BID 08/20/18 08/20/18 08/20/18 clonazePAM [Klonopin] 1 mg PO BID 08/20/18 08/20/18 08/20/18 Previous Rx's Medication Instructions Recorded Last Taken Type Tramadol HCl [Ultram] 50 mg PO Q6H PRN #12 tablet 07/10/18 08/20/18 Rx Ibuprofen 800 mg PO TID PRN #30 tablet 08/20/18 08/20/18 Rx Nitrofurantoin Monohyd/M-Cryst 100 mg PO BID 7 Days #14 capsule 08/20/18 08/20/18 Rx [Macrobid 100 mg Capsule] Allergies Allergy/AdvReac Type Severity Reaction Status Date / Time aripiprazole [From Abilify] Allergy Hives Verified 08/20/18 17:43 chlorpromazine Allergy Hives Verified 08/20/18 17:43 [From Thorazine] ED Review of Systems ROS: Stated complaint: VIKI/STOMACH PAIN Other details as noted in HPI Comment: All other systems reviewed and negative Constitutional: denies: chills, fever Respiratory: denies: cough, orthopnea, shortness of breath, SOB with exertion, SOB at rest Cardiovascular: denies: chest pain, palpitations Gastrointestinal: denies: abdominal pain, nausea, vomiting Genitourinary: urgency, dysuria, frequency Musculoskeletal: back pain Neurological: denies: headache, weakness, numbness, paresthesias, confusion ED Past Medical Hx - Past Medical History Hx Hypertension: No Hx Diabetes: Yes Hx Deep Vein Thrombosis: No Hx Renal Disease: No Hx Sickle Cell Disease: No Hx Seizures: Yes (last seizures 3 mths ago) Hx Psychiatric Treatment: Yes (Bipolar, Schizophrenia) Hx Asthma: Yes Hx HIV: No Additional medical history: fibroids, Obesity - Surgical History Hx Cholecystectomy: Yes Additional Surgical History: Tubal Ligation - Social History Smoking Status: Never Smoker Substance Use Type: None - Medications Home Medications: Home Medications Medication Instructions Recorded Confirmed Last Taken Type Tramadol HCl [Ultram] 50 mg PO Q6H PRN #12 tablet 07/10/18 08/20/18 08/20/18 Rx Divalproex ER [DepaKOTE ER] 1,000 mg PO QDAY 08/20/18 08/20/18 08/20/18 History Haloperidol [Haldol] 5 mg PO QHS 08/20/18 08/20/18 08/20/18 History Ibuprofen 800 mg PO TID PRN #30 tablet 08/20/18 08/20/18 08/20/18 Rx Nitrofurantoin Monohyd/M-Cryst 100 mg PO BID 7 Days #14 capsule 08/20/18 08/20/18 08/20/18 Rx [Macrobid 100 mg Capsule] Ziprasidone [Geodon] 60 mg PO BID 08/20/18 08/20/18 08/20/18 History clonazePAM [Klonopin] 1 mg PO BID 08/20/18 08/20/18 08/20/18 History ED Physical Exam - General Limitations: No Limitations General appearance: alert, in no apparent distress - Head Head exam: Present: atraumatic, normocephalic, normal inspection - Eye Eye exam: Present: normal appearance - ENT ENT exam: Present: normal exam, normal orophraynx, mucous membranes moist - Respiratory Respiratory exam: Present: normal lung sounds bilaterally - Cardiovascular Cardiovascular Exam: Present: regular rate, normal rhythm, normal heart sounds - GI/Abdominal GI/Abdominal exam: Present: soft, normal bowel sounds. Absent: distended, tenderness, guarding, rebound, rigid - Extremities Exam Extremities exam: Present: normal inspection, full ROM, normal capillary refill - Back Exam Back exam: Present: normal inspection, full ROM - Neurological Exam Neurological exam: Present: alert, oriented X3, CN II-XII intact, normal gait, reflexes normal - Skin Skin exam: Present: warm, intact, normal color ED Course Vital Signs 08/20/18 08/20/18 08:01 09:30 Temperature 97.7 F Pulse Rate 68 Respiratory 18 18 Rate Blood Pressure 119/74 O2 Sat by Pulse 99 Oximetry Critical care attestation.: If time is entered above; I have spent that time in minutes in the direct care of this critically ill patient, excluding procedure time. ED Disposition Clinical Impression: UTI (urinary tract infection), Back pain Disposition: TO HOME OR SELFCARE Is pt being admited?: No Condition: Stable Instructions: Uterine Fibroids (ED), Urinary Tract Infection in Women (ED) Referrals: SANTHOSH BALDERRAMA MD [Primary Care Provider] - 3-5 Days
== END 2018-08-20 09:39 | disposition home or self-care (01) ==
LOC: ED 07:53
DX: N39.0 Urinary tract infection, site not specified (principal); M54.89 Other dorsalgia; E11.9 Type 2 diabetes mellitus without complications; F31.9 Bipolar disorder, unspecified; F20.9 Schizophrenia, unspecified; J45.909 Unspecified asthma, uncomplicated; Z90.49 Acquired absence of other specified parts of digestive tract; Z98.51 Tubal ligation status; Z79.899 Other long term (current) drug therapy
CPT/HCPCS: 96372; 99282; J1885

== ENCOUNTER 2018-08-20 17:40 | Emergency (ER) | payer MEDICAID ==
[2018-08-20 17:50] VITALS: BP 134/79
[2018-08-20 18:26] LABS: Basophils # (Auto) 0.1 K/mm3 (0.0-0.1); Basophils % (Auto) 0.9 % (0.0-1.8); Eosinophils # (Auto) 0.1 K/mm3 (0.0-0.4); Eosinophils % (Auto) 1.9 % (0.0-4.3); Hematocrit 34.3 % (30.3-42.9); Hemoglobin 11.4 gm/dl (10.1-14.3); Lymphocytes # (Auto) 1.6 K/mm3 (1.2-5.4); Lymphocytes % (Auto) 21.6 % (13.4-35.0); Mean Corpuscular HGB Conc 33 % (30-34); Mean Corpuscular Volume 83 fl (79-97); Monocytes # (Auto) 0.8 K/mm3 (0.0-0.8); Monocytes % (Auto) 11.5 % (0.0-7.3); Platelet Count 212 K/mm3 (140-440); Red Blood Count 4.14 M/mm3 (3.65-5.03); Red Cell Distribution Width 15.5 % (13.2-15.2)
[2018-08-20 18:38] LABS: BUN/Creatinine Ratio 24; Blood Urea Nitrogen 17 mg/dL (7-17); Calcium 9.3 mg/dL (8.4-10.2); Hemolysis Index 5
[2018-08-20] MEDS ORDERED: IBUPROFEN PO PRN ×2 (19:41→20:06)
--- NOTE | 2018-08-20 19:42 | Emergency Department Report ---
ED General Adult HPI - General Chief complaint: Psych Stated complaint: DEPRESSION Time Seen by Provider: 08/20/18 19:30 Source: patient, RN notes reviewed, old records reviewed Mode of arrival: Ambulatory Limitations: No Limitations - History of Present Illness Initial comments: This is a 27-year-old female. The patient has a past medical history of psychiatric disease and fibroids. The patient presents to the emergency room today with a complaint of depression and wanting to hurt other people. Her symptoms are constant. They do not radiate anywhere. She reports that she was recently kicked out of her personal fpc. She denies headache, neck pain, chest pain. The patient complains of subacute abdominal pain. It is in the bilateral lower quadrants. She also has dysuria. The patient was recently seen by one of our nurse practitioners, and presumptively diagnosed with a urinary tract infection. The patient denies hallucinations, and she denies intention to overdose. She makes no complaint of suicidality. -: Gradual Location: abdomen Radiation: non-radiation Quality: aching Consistency: intermittent Improves with: none Worsens with: none - Related Data Home Medications Medication Instructions Recorded Confirmed Last Taken Divalproex ER [DepaKOTE ER] 1,000 mg PO QDAY 08/20/18 08/20/18 08/20/18 Haloperidol [Haldol] 705 mg PO QHS 08/20/18 08/20/18 08/20/18 Ziprasidone [Geodon] 60 mg PO BID 08/20/18 08/20/18 08/20/18 clonazePAM [Klonopin] 1 mg PO BID 08/20/18 08/20/18 08/20/18 Previous Rx's Medication Instructions Recorded Last Taken Type Tramadol HCl [Ultram] 50 mg PO Q6H PRN #12 tablet 07/10/18 08/20/18 Rx Ibuprofen 800 mg PO TID PRN #30 tablet 08/20/18 08/20/18 Rx Nitrofurantoin Monohyd/M-Cryst 100 mg PO BID 7 Days #14 capsule 08/20/18 08/20/18 Rx [Macrobid 100 mg Capsule] Allergies Allergy/AdvReac Type Severity Reaction Status Date / Time aripiprazole [From Abilifyash] Allergy Hives Verified 08/20/18 17:43 chlorpromazine Allergy Hives Verified 08/20/18 17:43 [From Thorazine] ED Review of Systems ROS: Stated complaint: DEPRESSION Other details as noted in HPI Constitutional: denies: fever Eyes: denies: eye discharge ENT: denies: epistaxis Respiratory: denies: cough Cardiovascular: denies: chest pain Gastrointestinal: abdominal pain. denies: nausea, vomiting Genitourinary: dysuria Musculoskeletal: denies: back pain Skin: denies: lesions Neurological: denies: weakness Psychiatric: depression. denies: suicidal thoughts ED Past Medical Hx - Past Medical History Hx Hypertension: No Hx Diabetes: Yes Hx Deep Vein Thrombosis: No Hx Renal Disease: No Hx Sickle Cell Disease: No Hx Seizures: Yes (last seizures 3 mths ago) Hx Psychiatric Treatment: Yes (Bipolar, Schizophrenia) Hx Asthma: Yes Hx HIV: No Additional medical history: fibroids, Obesity - Surgical History Hx Cholecystectomy: Yes Additional Surgical History: Tubal Ligation - Social History Smoking Status: Current Every Day Smoker Substance Use Type: None - Medications Home Medications: Home Medications Medication Instructions Recorded Confirmed Last Taken Type Tramadol HCl [Ultram] 50 mg PO Q6H PRN #12 tablet 07/10/18 08/20/18 08/20/18 Rx Divalproex ER [DepaKOTE ER] 1,000 mg PO QDAY 08/20/18 08/20/18 08/20/18 History Haloperidol [Haldol] 705 mg PO QHS 08/20/18 08/20/18 08/20/18 History Ibuprofen 800 mg PO TID PRN #30 tablet 08/20/18 08/20/18 08/20/18 Rx Nitrofurantoin Monohyd/M-Cryst 100 mg PO BID 7 Days #14 capsule 08/20/18 08/20/18 08/20/18 Rx [Macrobid 100 mg Capsule] Ziprasidone [Geodon] 60 mg PO BID 08/20/18 08/20/18 08/20/18 History clonazePAM [Klonopin] 1 mg PO BID 08/20/18 08/20/18 08/20/18 History ED Physical Exam - General Limitations: No Limitations General appearance: alert, in no apparent distress - Head Head exam: Present: atraumatic, normocephalic - Eye Eye exam: Present: normal appearance, EOMI. Absent: nystagmus - ENT ENT exam: Present: normal exam, normal orophraynx, mucous membranes moist, normal external ear exam - Neck Neck exam: Present: normal inspection, full ROM. Absent: tenderness, meningismus - Respiratory Respiratory exam: Present: normal lung sounds bilaterally. Absent: respiratory distress - Cardiovascular Cardiovascular Exam: Present: regular rate, normal rhythm, normal heart sounds. Absent: bradycardia, tachycardia, irregular rhythm, systolic murmur, diastolic murmur, rubs, gallop - GI/Abdominal GI/Abdominal exam: Present: soft, normal bowel sounds. Absent: distended, tenderness, guarding, rebound, rigid, pulsatile mass - Extremities Exam Extremities exam: Present: normal inspection, full ROM, other (2+ pulses noted in the bilateral upper, lower extremities. Compartments soft. No long bony tenderness. The pelvis is stable.). Absent: pedal edema, joint swelling, calf tenderness - Back Exam Back exam: Present: normal inspection, full ROM. Absent: tenderness, CVA tenderness (R), paraspinal tenderness, vertebral tenderness - Neurological Exam Neurological exam: Present: alert, oriented X3, CN II-XII intact, other (Extraocular movements intact. Tongue midline. No facial droop. Facial sensation intact to light touch in the V1, V2, V3 distribution bilaterally. 5 and 5 strength in 4 extremities.. Sensation is intact to light touch in 4 extremities.). Absent: motor sensory deficit - Psychiatric Psychiatric exam: Present: flat affect. Absent: suicidal ideation - Skin Skin exam: Present: warm, dry, intact, normal color. Absent: rash ED Course Vital Signs 08/20/18 17:49 Temperature 98.1 F Pulse Rate 89 Respiratory 16 Rate Blood Pressure 134/79 O2 Sat by Pulse 97 Oximetry ED Medical Decision Making - Lab Data Result diagrams: 08/20/18 18:06 08/20/18 18:06 Vital Signs 08/20/18 17:49 Temperature 98.1 F Pulse Rate 89 Respiratory 16 Rate Blood Pressure 134/79 O2 Sat by Pulse 97 Oximetry Lab Results 08/20/18 08/20/18 08/20/18 Range/Units 18:06 18:06 18:06 WBC (4.5-11.0) K/mm3 RBC (3.65-5.03) M/mm3 Hgb (10.1-14.3) gm/dl Hct (30.3-42.9) % MCV (79-97) fl MCH (28-32) pg MCHC (30-34) % RDW (13.2-15.2) % Plt Count (140-440) K/mm3 Lymph % (Auto) (13.4-35.0) % Clinch % (Auto) (0.0-7.3) % Eos % (Auto) (0.0-4.3) % Baso % (Auto) (0.0-1.8) % Lymph # (1.2-5.4) K/mm3 Clinch # (0.0-0.8) K/mm3 Eos # (0.0-0.4) K/mm3 Baso # (0.0-0.1) K/mm3 Seg Neutrophils % (40.0-70.0) % Seg Neutrophils # (1.8-7.7) K/mm3 Sodium 142 (137-145) mmol/L Potassium 4.2 (3.6-5.0) mmol/L Chloride 103.2 (98-107) mmol/L Carbon Dioxide 29 (22-30) mmol/L Anion Gap 14 mmol/L BUN 17 (7-17) mg/dL Creatinine 0.7 (0.7-1.2) mg/dL Estimated GFR > 60 ml/min BUN/Creatinine Ratio 24 % Glucose 91 (65-100) mg/dL Calcium 9.3 (8.4-10.2) mg/dL Salicylates < 0.3 L (2.8-20.0) mg/dL Acetaminophen < 5.0 L (10.0-30.0) ug/mL Valproic Acid (50-100) ug/mL Plasma/Serum Alcohol (0-0.07) % 08/20/18 08/20/18 08/20/18 Range/Units 18:06 18:06 18:06 WBC 7.2 (4.5-11.0) K/mm3 RBC 4.14 (3.65-5.03) M/mm3 Hgb 11.4 (10.1-14.3) gm/dl Hct 34.3 (30.3-42.9) % MCV 83 (79-97) fl MCH 28 (28-32) pg MCHC 33 (30-34) % RDW 15.5 H (13.2-15.2) % Plt Count 212 (140-440) K/mm3 Lymph % (Auto) 21.6 (13.4-35.0) % Clinch % (Auto) 11.5 H (0.0-7.3) % Eos % (Auto) 1.9 (0.0-4.3) % Baso % (Auto) 0.9 (0.0-1.8) % Lymph # 1.6 (1.2-5.4) K/mm3 Clinch # 0.8 (0.0-0.8) K/mm3 Eos # 0.1 (0.0-0.4) K/mm3 Baso # 0.1 (0.0-0.1) K/mm3 Seg Neutrophils % 64.1 (40.0-70.0) % Seg Neutrophils # 4.6 (1.8-7.7) K/mm3 Sodium (137-145) mmol/L Potassium (3.6-5.0) mmol/L Chloride (98-107) mmol/L Carbon Dioxide (22-30) mmol/L Anion Gap mmol/L BUN (7-17) mg/dL Creatinine (0.7-1.2) mg/dL Estimated GFR ml/min BUN/Creatinine Ratio % Glucose (65-100) mg/dL Calcium (8.4-10.2) mg/dL Salicylates (2.8-20.0) mg/dL Acetaminophen (10.0-30.0) ug/mL Valproic Acid 19.8 L (50-100) ug/mL Plasma/Serum Alcohol < 0.01 (0-0.07) % - Medical Decision Making Differential diagnosis, including without limited to: Mood disorder, suicidality, malingering, medical clearance for psychiatric placement, functional abdominal pain, urinary tract infection Assessment and plan: 27-year-old female, with a primary complaint of homelessness, depression, and wanted to harm other people. The patient is remarkably lucid, and clear and linear in her thought patterns, and appears to be clinically sober at this time. When distracted, she has no abdominal tenderness, rebound or guarding, and in fact laughs and smiles during her abdominal examination. Her abdominal examination is benign, and Macrobid therapy has been initiated for presumed urinary tract infection. A 1013 is ordered, and we will continue the patient's current outpatient medications. A psychiatric consultation has been requested. I suspect that the patient does endorse and psychiatric symptoms given her current housing situation, however, I will defer to the psychiatric team to further clarify this. Case management consult is requested as well. Objectively speaking, at this point in time, the patient does not appear to have an immediate medical contraindication to psychiatric admission, evaluation, consultation. She was informed about her 1013 status, she was evaluated by the mental health liaison, we will continue her current outpatient medications, and the patient is medically suitable for psychiatric placement at this time. Critical care attestation.: If time is entered above; I have spent that time in minutes in the direct care of this critically ill patient, excluding procedure time. ED Disposition Clinical Impression: Medical clearance for psychiatric admission Disposition: [id number] PSY HOSP/PSY UNIT Is pt being admited?: No Does the pt Need Aspirin: No Condition: Good
[2018-08-20] MEDS ORDERED: GEODON PO SCH (22:00)
[2018-08-20] MEDS ORDERED: HALDOL PO SCH (22:00)
[2018-08-20] MEDS ORDERED: MACROBID PO SCH (22:00)
[2018-08-20 22:19] LABS: Bilirubin,Urine NEG (Negative); Blood,Urine NEG (Negative); Color,Urine Amber (Yellow); Mucus,Urine 1+ /HPF
[2018-08-20 22:36] LABS: Amphetamine Screen,Urine PRESUMPTIVE NEGATIVE; Cannabinoid Screen,Urine PRESUMPTIVE NEGATIVE; Cocaine Screen,Urine PRESUMPTIVE NEGATIVE; Methadone Screen,Urine PRESUMPTIVE NEGATIVE; Opiate Screen,Urine PRESUMPTIVE NEGATIVE
[2018-08-20 22:54] LABS: Benzodiazepines Screen,Urine PRESUMPTIVE POSITIVE
== END 2018-08-21 03:34 ==
LOC: ED 17:40 → EEVIPCON 17:40 → ED 08-21 03:34
DX: F32.9 Major depressive disorder, single episode, unspecified (principal); Z59.0 Homelessness; E11.9 Type 2 diabetes mellitus without complications; F20.9 Schizophrenia, unspecified; J45.909 Unspecified asthma, uncomplicated; E66.9 Obesity, unspecified; Z68.36 Body mass index [BMI] 36.0-36.9, adult; F17.200 Nicotine dependence, unspecified, uncomplicated; Z90.49 Acquired absence of other specified parts of digestive tract; Z98.51 Tubal ligation status; Z88.8 Allergy status to other drugs, medicaments and biological substances
CPT/HCPCS: 36415; 80048; 80164; 80307; 81001; 85025; 87086; 99285; G0480; 80320; 96372; 99282; J1885

== ENCOUNTER 2019-03-13 19:05 | Emergency (ER) | payer MEDICAID ==
[2019-03-13 19:38] VITALS: BP 147/96
--- NOTE | 2019-03-13 20:27 | Event Note ---
ED Screening Note Date of service: 03/13/19 Time: 20:23 ED Screening Note: This is a 28 y.o. F. that presents to the ER with lower abdominal pain, nausea, and vomiting for 1 week. Current cigarette smoker LMP 02/07/2019 and last for 1 month. Reports history of uterine fibroids. This initial assessment/diagnostic orders/clinical plan/treatment(s) is/are subject to change based on patients health status, clinical progression and re- assessment by fellow clinical providers in the ED. Further treatment and workup at subsequent clinical providers discretion. Patient/guardian urged not to elope from the ED as their condition may be serious if not clinically assessed and managed. Initial orders include: Labs
[2019-03-13 21:16] LABS: Bilirubin,Urine NEG (Negative); Blood,Urine NEG (Negative); Color,Urine Yellow (Yellow); Mucus,Urine FEW /HPF; Protein,Urine <15 mg/dL mg/dL (Negative); Urobilinogen,Urine < 2.0 mg/dL (<2.0)
[2019-03-13 21:55] LABS: Basophils # (Auto) 0.1 K/mm3 (0.0-0.1); Basophils % (Auto) 0.7 % (0.0-1.8); Eosinophils # (Auto) 0.1 K/mm3 (0.0-0.4); Eosinophils % (Auto) 1.3 % (0.0-4.3); Hematocrit 34.9 % (30.3-42.9); Hemoglobin 11.8 gm/dl (10.1-14.3); Lymphocytes # (Auto) 2.7 K/mm3 (1.2-5.4); Lymphocytes % (Auto) 27.4 % (13.4-35.0); Mean Corpuscular HGB Conc 34 % (30-34); Mean Corpuscular Volume 84 fl (79-97); Monocytes # (Auto) 0.7 K/mm3 (0.0-0.8); Platelet Count 208 K/mm3 (140-440); Red Blood Count 4.16 M/mm3 (3.65-5.03); Red Cell Distribution Width 15.6 % (13.2-15.2)
[2019-03-13 22:01] LABS: Alanine Aminotransferase 11 units/L (7-56); Albumin 4.1 g/dL (3.9-5); BUN/Creatinine Ratio 18; Blood Urea Nitrogen 9 mg/dL (7-17); Calcium 8.9 mg/dL (8.4-10.2); Hemolysis Index 13
--- NOTE | 2019-03-13 22:37 | Emergency Department Report ---
ED Abdominal Pain HPI - General Chief Complaint: Nausea/Vomiting/Diarrhea Stated Complaint: ABD PAIN Time Seen by Provider: 03/13/19 20:23 Source: patient Mode of arrival: Wheelchair Limitations: No Limitations - History of Present Illness Initial Comments: CC: "I have food poisoning." HPI: Kiara is a 28 yo female with hx of DM, Bipolar schizophrenia, seizure uterine fibroids who presents with vomiting and diarrhea for 4 days. Denies abdominal pain currently. Recently incarcerated. She blames the senior care food for making her sick. She is able to keep down fluids. She is staying hydrated. MD Complaint: other (vomiting diarrhea) -: Gradual, days(s) (4) Severity: mild Consistency: now resolved Improves With: nothing Worsens With: nothing Context: possible food poisoning Associated Symptoms: nausea, vomiting, diarrhea - Related Data Home Medications Medication Instructions Recorded Confirmed Last Taken Divalproex ER [DepaKOTE ER] 1,000 mg PO QDAY 08/20/18 08/20/18 08/20/18 Haloperidol [Haldol] 5 mg PO QHS 08/20/18 08/20/18 08/20/18 Ziprasidone [Geodon] 60 mg PO BID 08/20/18 08/20/18 08/20/18 clonazePAM [Klonopin] 1 mg PO BID 08/20/18 08/20/18 08/20/18 Previous Rx's Medication Instructions Recorded Last Taken Type Tramadol HCl [Ultram] 50 mg PO Q6H PRN #12 tablet 07/10/18 08/20/18 Rx Ibuprofen [Ibuprofen 800] 800 mg PO TID PRN #30 tablet 08/20/18 08/20/18 Rx Nitrofurantoin Monohyd/M-Cryst 100 mg PO BID 7 Days #14 capsule 08/20/18 08/20/18 Rx [Macrobid 100 mg Capsule] Ondansetron [Zofran Odt] 4 mg PO Q8HR PRN #10 tab.rapdis 03/13/19 Unknown Rx Allergies Allergy/AdvReac Type Severity Reaction Status Date / Time aripiprazole [From Abilify] Allergy Hives Verified 08/20/18 17:43 chlorpromazine Allergy Hives Verified 08/20/18 17:43 [From Thorazine] ED Review of Systems ROS: Stated complaint: ABD PAIN Other details as noted in HPI Comment: All other systems reviewed and negative Constitutional: denies: fever, malaise Gastrointestinal: nausea, vomiting, diarrhea. denies: abdominal pain ED Past Medical Hx - Past Medical History Previous Medical History?: Yes Hx Hypertension: No Hx Diabetes: Yes Hx Deep Vein Thrombosis: No Hx Renal Disease: No Hx Sickle Cell Disease: No Hx Seizures: Yes (last seizures 3 mths ago) Hx Psychiatric Treatment: Yes (Bipolar, Schizophrenia) Hx Asthma: Yes Hx HIV: No Additional medical history: fibroids, Obesity - Surgical History Past Surgical History?: Yes Hx Cholecystectomy: Yes Additional Surgical History: Tubal Ligation - Social History Smoking Status: Current Every Day Smoker Substance Use Type: None - Medications Home Medications: Home Medications Medication Instructions Recorded Confirmed Last Taken Type Tramadol HCl [Ultram] 50 mg PO Q6H PRN #12 tablet 07/10/18 08/20/18 08/20/18 Rx Divalproex ER [DepaKOTE ER] 1,000 mg PO QDAY 08/20/18 08/20/18 08/20/18 History Haloperidol [Haldol] 5 mg PO QHS 08/20/18 08/20/18 08/20/18 History Ibuprofen [Ibuprofen 800] 800 mg PO TID PRN #30 tablet 08/20/18 08/20/18 08/20/18 Rx Nitrofurantoin Monohyd/M-Cryst 100 mg PO BID 7 Days #14 capsule 08/20/18 08/20/18 08/20/18 Rx [Macrobid 100 mg Capsule] Ziprasidone [Geodon] 60 mg PO BID 08/20/18 08/20/18 08/20/18 History clonazePAM [Klonopin] 1 mg PO BID 08/20/18 08/20/18 08/20/18 History Ondansetron [Zofran Odt] 4 mg PO Q8HR PRN #10 tab.rapdis 03/13/19 Unknown Rx ED Physical Exam - General Limitations: No Limitations General appearance: alert, in no apparent distress, other (appears well appears comfortable) - Head Head exam: Present: atraumatic, normocephalic - Eye Eye exam: Present: normal appearance - ENT ENT exam: Present: mucous membranes moist - Neck Neck exam: Present: normal inspection, full ROM - Respiratory Respiratory exam: Present: normal lung sounds bilaterally. Absent: respiratory distress, wheezes, rales, rhonchi - Cardiovascular Cardiovascular Exam: Present: regular rate, normal rhythm, normal heart sounds. Absent: systolic murmur, diastolic murmur, rubs, gallop - GI/Abdominal GI/Abdominal exam: Present: soft, normal bowel sounds. Absent: distended, tenderness, guarding, rebound - Extremities Exam Extremities exam: Present: normal inspection - Neurological Exam Neurological exam: Present: alert, oriented X3 - Psychiatric Psychiatric exam: Present: normal affect, normal mood - Skin Skin exam: Present: warm, dry, intact, normal color. Absent: rash ED Course Vital Signs 03/13/19 03/13/19 19:19 20:23 Temperature 98.4 F 98.4 F Pulse Rate 79 76 Respiratory 18 18 Rate Blood Pressure 147/96 147/96 O2 Sat by Pulse 98 100 Oximetry ED Medical Decision Making - Lab Data Result diagrams: 03/13/19 21:25 03/13/19 21:25 Laboratory Results - last 24 hr 03/13/19 03/13/19 03/13/19 21:02 21:25 21:25 WBC 9.9 RBC 4.16 Hgb 11.8 Hct 34.9 MCV 84 MCH 28 MCHC 34 RDW 15.6 H Plt Count 208 Lymph % (Auto) 27.4 [place] % (Auto) 7.0 Eos % (Auto) 1.3 Baso % (Auto) 0.7 Lymph # 2.7 [place] # 0.7 Eos # 0.1 Baso # 0.1 Seg Neutrophils % 63.6 Seg Neutrophils # 6.3 Sodium 141 Potassium 4.1 Chloride 102.8 Carbon Dioxide 26 Anion Gap 16 BUN 9 Creatinine 0.5 L Estimated GFR > 60 BUN/Creatinine Ratio 18 Glucose 90 Calcium 8.9 Total Bilirubin < 0.20 AST 18 ALT 11 Alkaline Phosphatase 59 Total Protein 7.4 Albumin 4.1 Albumin/Globulin Ratio 1.2 HCG, Qual Urine Color Yellow Urine Turbidity Slightly-cloudy Urine pH 7.0 Ur Specific [place] 1.018 Urine Protein <15 mg/dl Urine Glucose (UA) Neg Urine Ketones Neg Urine Blood Neg Urine Nitrite Neg Urine Bilirubin Neg Urine Urobilinogen < 2.0 Ur Leukocyte Esterase Tr Urine WBC (Auto) 2.0 Urine RBC (Auto) 2.0 U Epithel Cells (Auto) 15.0 H Urine Mucus Few 03/13/19 21:25 WBC RBC Hgb Hct MCV MCH MCHC RDW Plt Count Lymph % (Auto) [place] % (Auto) Eos % (Auto) Baso % (Auto) Lymph # [place] # Eos # Baso # Seg Neutrophils % Seg Neutrophils # Sodium Potassium Chloride Carbon Dioxide Anion Gap BUN Creatinine Estimated GFR BUN/Creatinine Ratio Glucose Calcium Total Bilirubin AST ALT Alkaline Phosphatase Total Protein Albumin Albumin/Globulin Ratio HCG, Qual Negative Urine Color Urine Turbidity Urine pH Ur Specific [place] Urine Protein Urine Glucose (UA) Urine Ketones Urine Blood Urine Nitrite Urine Bilirubin Urine Urobilinogen Ur Leukocyte Esterase Urine WBC (Auto) Urine RBC (Auto) U Epithel Cells (Auto) Urine Mucus - Medical Decision Making Kiara appears well. Mild case of food poisoning. Recommended supportive care. Prescribed zofran. cbc chemistry WNL test negative contaminated UA without signs of urinary infection Critical care attestation.: If time is entered above; I have spent that time in minutes in the direct care of this critically ill patient, excluding procedure time. ED Disposition Clinical Impression: Food poisoning Disposition: [id number]-01 TO HOME OR SELFCARE Is pt being admited?: No Does the pt Need Aspirin: No Condition: Stable Instructions: Food Poisoning (ED) Prescriptions: Ondansetron [Zofran Odt] 4 mg PO Q8HR PRN #10 tab.rapdis PRN Reason: Nausea Referrals: [facility] [Outside] - as needed
== END 2019-03-13 22:49 | disposition home or self-care (01) ==
LOC: ED 19:05
DX: A05.9 Bacterial foodborne intoxication, unspecified (principal); E11.9 Type 2 diabetes mellitus without complications; F31.9 Bipolar disorder, unspecified; F20.9 Schizophrenia, unspecified; D25.9 Leiomyoma of uterus, unspecified; F17.200 Nicotine dependence, unspecified, uncomplicated; J45.909 Unspecified asthma, uncomplicated; E66.9 Obesity, unspecified; Z68.41 Body mass index [BMI] 40.0-44.9, adult; Z79.899 Other long term (current) drug therapy; Z88.5 Allergy status to narcotic agent; Z79.1 Long term (current) use of non-steroidal anti-inflammatories (NSAID); Z90.49 Acquired absence of other specified parts of digestive tract; Z98.51 Tubal ligation status
CPT/HCPCS: 36415; 80053; 81001; 84703; 85025; 99284

== ENCOUNTER 2019-03-26 03:44 | Emergency (ER) | payer MEDICAID ==
[2019-03-26 04:40] VITALS: BP 157/89
--- NOTE | 2019-03-26 10:13 | Emergency Department Report ---
Minor Respiratory - HPI Chief Complaint: Chest Pain Stated Complaint: CHEST PAIN Duration: 1 week Minor Respiratory: Yes Rhinorrhea, Yes Able to Tolerate Fluids, Yes Cough, Yes Sick Contacts, Yes Chest Pain (with cough), No Sore Throat, No Ear Pain, No Hemoptysis, No Shortness of Breath, No Fever Other History: 28-year-old -[place] female presents to the emergency room complaining of chest pain with cough, headache, runny nose and body aches 1 week. Patient states that she was seen at [facility] and left yesterday morning and was prescribed a medication but not able to afford it. So therefore patient returns back to this emergency room. She has a past medical history of bipolar, schizophrenia as well diabetes. ED Review of Systems ROS: Stated complaint: CHEST PAIN Other details as noted in HPI Comment: All other systems reviewed and negative ED Past Medical Hx - Past Medical History Previous Medical History?: Yes Hx Hypertension: No Hx Diabetes: Yes Hx Deep Vein Thrombosis: No Hx Renal Disease: No Hx Sickle Cell Disease: No Hx Seizures: Yes (last seizures 3 mths ago) Hx Psychiatric Treatment: Yes (Bipolar, Schizophrenia) Hx Asthma: Yes Hx HIV: No Additional medical history: fibroids, Obesity - Surgical History Past Surgical History?: Yes Hx Cholecystectomy: Yes Additional Surgical History: Tubal Ligation - Social History Smoking Status: Current Every Day Smoker Substance Use Type: None - Medications Home Medications: Home Medications Medication Instructions Recorded Confirmed Last Taken Type Tramadol HCl [Ultram] 50 mg PO Q6H PRN #12 tablet 07/10/18 08/20/18 08/20/18 Rx Divalproex ER [DepaKOTE ER] 1,000 mg PO QDAY 08/20/18 08/20/18 08/20/18 History Haloperidol [Haldol] 5 mg PO QHS 08/20/18 08/20/18 08/20/18 History Ibuprofen [Ibuprofen 800] 800 mg PO TID PRN #30 tablet 08/20/18 08/20/1807/26 Rx Nitrofurantoin Monohyd/M-Cryst 100 mg PO BID 7 Days #14 capsule 08/20/18 08/20/18 08/20/18 Rx [Macrobid 100 mg Capsule] Ziprasidone [Geodon] 60 mg PO BID 08/20/18 08/20/18 08/20/18 History clonazePAM [Klonopin] 1 mg PO BID 08/20/18 08/20/18 08/20/18 History Ondansetron [Zofran Odt] 4 mg PO Q8HR PRN #10 tab.rapdis 03/13/19 Unknown Rx Minor Respiratory Exam - Exam General: Vital signs noted. No distress. Alert and acting appropriately. HEENT: Yes Moist Mucous Membranes, No Pharyngeal Erythema, No Pharyngeal Exudates, No Rhinorrhea, No Conjuctival Injection, No Frontal Tenderness, No Maxillary Tenderness Ear: Neither TM Bulge, Neither TM Erythema, Neither EAC Pain, Neither EAC Discharge Neck: Yes Supple, No Adenopathy Lungs: Yes Good Air Exchange, No Wheezes, No Ronchi, No Stridor, No Cough, No Labored Respirations, No Retractions, No Use of Accessory Muscles, No Other Abnormal Lung Sounds Heart: Yes Regular, No Murmur Abdomen: Yes Normal Bowel Sounds, No Tenderness, No Peritoneal Signs Skin: No Rash, No Edema Neurologic: Alert and oriented, no deficits. Musculoskeletal: Unremarkable. ED Course Vital Signs 03/26/19 03:57 Temperature 98.4 F Pulse Rate 72 Respiratory 18 Rate Blood Pressure 157/89 O2 Sat by Pulse 100 Oximetry ED Medical Decision Making - Medical Decision Making 28-year-old -[place] female presents to the emergency room complaining of chest pain with cough, headache, runny nose and body aches 1 week. Patient states that she was seen at [facility] and left yesterday morning and was prescribed a medication but not able to afford it. So therefore patient returns back to this emergency room. She has a past medical history of bipolar, schizophrenia as well diabetes. Patient instructed to increase her fluid intake take her medication and follow up with her primary care provider. Critical care attestation.: If time is entered above; I have spent that time in minutes in the direct care of this critically ill patient, excluding procedure time. ED Disposition Clinical Impression: Acute URI Disposition: -01 TO HOME OR SELFCARE Is pt being admited?: No Does the pt Need Aspirin: No Condition: Stable Instructions: Upper Respiratory Infection (ED), Viral Syndrome (ED) Additional Instructions: Please fill your prescription and follow-up with the primary care provider. Please increase her fluid intake and advance your diet as tolerated. Take Tylenol and/or ibuprofen for body aches. Referrals: PRIMARY CARE, [Primary Care Provider] - 3-5 Days Forms: Work/School Release Form(ED)
== END 2019-03-26 10:29 | disposition home or self-care (01) ==
LOC: ED 03:44
DX: J06.9 Acute upper respiratory infection, unspecified (principal); E11.9 Type 2 diabetes mellitus without complications; F25.0 Schizoaffective disorder, bipolar type; F17.200 Nicotine dependence, unspecified, uncomplicated; Z90.49 Acquired absence of other specified parts of digestive tract; Z98.51 Tubal ligation status; Z79.899 Other long term (current) drug therapy; Z88.8 Allergy status to other drugs, medicaments and biological substances
CPT/HCPCS: 93005; 93010

== ENCOUNTER 2019-04-06 18:32 | Emergency (ER) | payer MEDICAID ==
[2019-04-06 19:00] VITALS: BP 122/87
--- NOTE | 2019-04-06 19:03 | Event Note ---
ED Screening Note Date of service: 04/06/19 Time: 18:59 ED Screening Note: 28 y/o female comes in for left leg gave out since yesterday. This initial assessment/diagnostic orders/clinical plan/treatment(s) is/are subject to change based on patients health status, clinical progression and re-assessment by fellow clinical providers in the ED. Further treatment and workup at subsequent clinical providers discretion. Patient/guardian urged not to elope from the ED as their condition may be serious if not clinically assessed and managed. Initial orders include:
[2019-04-06] MEDS ORDERED: IBUPROFEN 800 MG TAB PO ONE (19:34)
--- NOTE | 2019-04-06 19:37 | Emergency Department Report ---
ED Lower Extremity HPI - General Chief Complaint: Extremity Injury, Lower Stated Complaint: L LEG PAIN Time Seen by Provider: 04/06/19 18:58 Source: patient Mode of arrival: Wheelchair Limitations: No Limitations - History of Present Illness Initial Comments: pt is a 28 y/o aaf who presents for left hip pain 4/10 aching. States she slipped on wet grass today. denies fall, however hip pain with weight bearing.There is no numbness no weakness no deformity. pt ambulated to ed. pt is exacerbated by weight bearing. pain is relieved by rest and off loading. Thre is no numbness no tingling . Complaint: hip injury Onset/Timin -: days(s) Injury: Hip: Left Type of Injury: hyperextension Place: home Severity: moderate Severity scale (0 -10): 4 Improves With: rest Worsens With: nothing Context: walking Associated Symptoms: ambulatory - Related Data Home Medications Medication Instructions Recorded Confirmed Last Taken Divalproex ER [DepaKOTE ER] 1,000 mg PO QDAY 08/20/18 08/20/18 08/20/18 Haloperidol [Haldol] 5 mg PO QHS 08/20/18 08/20/18 08/20/18 Ziprasidone [Geodon] 60 mg PO BID 08/20/18 08/20/18 08/20/18 clonazePAM [Klonopin] 1 mg PO BID 08/20/18 08/20/18 08/20/18 Previous Rx's Medication Instructions Recorded Last Taken Type Tramadol HCl [Ultram] 50 mg PO Q6H PRN #12 tablet 07/10/18 08/20/18 Rx Ibuprofen [Ibuprofen 800] 800 mg PO TID PRN #30 tablet 08/20/18 08/20/18 Rx Nitrofurantoin Monohyd/M-Cryst 100 mg PO BID 7 Days #14 capsule 08/20/18 08/20/18 Rx [Macrobid 100 mg Capsule] Ondansetron [Zofran Odt] 4 mg PO Q8HR PRN #10 tab.rapdis 03/13/19 Unknown Rx Ibuprofen [Motrin 800 MG tab] 800 mg PO Q8HR PRN #30 tablet 04/06/19 Unknown Rx Allergies Allergy/AdvReac Type Severity Reaction Status Date / Time aripiprazole [From Abilify] Allergy Hives Verified 08/20/18 17:43 chlorpromazine Allergy Hives Verified 08/20/18 17:43 [From Thorazine] ED Review of Systems ROS: Stated complaint: L LEG PAIN Other details as noted in HPI Constitutional: denies: chills, fever Eyes: denies: eye pain, eye discharge, vision change ENT: denies: ear pain, throat pain Respiratory: denies: cough, shortness of breath, wheezing Cardiovascular: denies: chest pain, palpitations Endocrine: no symptoms reported Gastrointestinal: denies: abdominal pain, nausea, diarrhea Genitourinary: denies: urgency, dysuria, discharge Musculoskeletal: denies: back pain, joint swelling, arthralgia Skin: denies: rash, lesions Neurological: denies: headache, weakness, paresthesias Psychiatric: denies: anxiety, depression Hematological/Lymphatic: denies: easy bleeding, easy bruising ED Past Medical Hx - Past Medical History Hx Hypertension: No Hx Diabetes: Yes Hx Deep Vein Thrombosis: No Hx Renal Disease: No Hx Sickle Cell Disease: No Hx Seizures: Yes (last seizures 3 mths ago) Hx Psychiatric Treatment: Yes (Bipolar, Schizophrenia) Hx Asthma: Yes Hx HIV: No Additional medical history: fibroids, Obesity - Surgical History Hx Cholecystectomy: Yes Additional Surgical History: Tubal Ligation - Social History Smoking Status: Current Every Day Smoker Substance Use Type: None - Medications Home Medications: Home Medications Medication Instructions Recorded Confirmed Last Taken Type Tramadol HCl [Ultram] 50 mg PO Q6H PRN #12 tablet 07/10/18 08/20/18 08/20/18 Rx Divalproex ER [DepaKOTE ER] 1,000 mg PO QDAY 08/20/18 08/20/18 08/20/18 History Haloperidol [Haldol] 5 mg PO QHS 08/20/18 08/20/18 08/20/18 History Ibuprofen [Ibuprofen 800] 800 mg PO TID PRN #30 tablet 08/20/18 08/20/18 08/20/18 Rx Nitrofurantoin Monohyd/M-Cryst 100 mg PO BID 7 Days #14 capsule 08/20/18 08/20/18 08/20/18 Rx [Macrobid 100 mg Capsule] Ziprasidone [Geodon] 60 mg PO BID 08/20/18 08/20/18 08/20/18 History clonazePAM [Klonopin] 1 mg PO BID 08/20/18 08/20/18 08/20/18 History Ondansetron [Zofran Odt] 4 mg PO Q8HR PRN #10 tab.rapdis 03/13/19 Unknown Rx Ibuprofen [Motrin 800 MG tab] 800 mg PO Q8HR PRN #30 tablet 04/06/19 Unknown Rx ED Physical Exam - General Limitations: No Limitations General appearance: alert, in no apparent distress - Head Head exam: Present: atraumatic, normocephalic - Eye Eye exam: Present: normal appearance, PERRL, EOMI Pupils: Present: normal accommodation - ENT ENT exam: Present: mucous membranes moist - Neck Neck exam: Present: normal inspection, full ROM. Absent: tenderness - Respiratory Respiratory exam: Present: normal lung sounds bilaterally. Absent: respiratory distress, wheezes, stridor - Cardiovascular Cardiovascular Exam: Present: regular rate, normal rhythm, normal heart sounds. Absent: systolic murmur, diastolic murmur, rubs, gallop - GI/Abdominal GI/Abdominal exam: Present: soft, normal bowel sounds - Rectal Rectal exam: Present: deferred - Extremities Exam Extremities exam: Present: normal inspection, full ROM. Absent: tenderness - Expanded Lower Extremity Exam Left Hip exam: Present: full ROM. Absent: tenderness, swelling, abrasion, laceration, ecchymosis, deformity, crepidus, erythema, external rotation, internal rotation, shortening Upper Leg exam: Present: full ROM. Absent: tenderness Knee exam: Present: full ROM. Absent: tenderness Lower Leg exam: Present: full ROM. Absent: tenderness Ankle exam: Absent: tenderness, swelling Foot/Toe exam: Absent: tenderness, swelling Neuro vascular tendon exam: Present: no vascular compromise Gait: Positive: observed and normal - Back Exam Back exam: Present: normal inspection, full ROM. Absent: tenderness, vertebral tenderness - Neurological Exam Neurological exam: Present: alert, oriented X3, CN II-XII intact, normal gait, reflexes normal. Absent: motor sensory deficit - Psychiatric Psychiatric exam: Present: normal affect, normal mood - Skin Skin exam: Present: warm, dry, intact, normal color. Absent: rash ED Course Vital Signs 04/06/19 18:59 Temperature 97.5 F L Pulse Rate 69 Respiratory 20 Rate Blood Pressure 122/87 O2 Sat by Pulse 96 Oximetry ED Lower Extremity MDM - Radiology Data Radiology results: image reviewed no fracture no dislocation no soft tissue abnormality. Ordering Physician: COURT ISABEL Date of Service: 04/06/19 Procedure(s): XR hip 2-3V LT Accession Number(s): [id number] cc: COURT ISABEL Fluoro Time In Minutes: LEFT HIP 2 VIEW(S) INDICATION / CLINICAL INFORMATION: left hip pain COMPARISON: CT scan from 09/16/2017 FINDINGS: BONES / JOINT(S): No acute fracture or subluxation. No significant arthritis. SOFT TISSUES: No significant abnormality. ADDITIONAL FINDINGS: Metallic surgical clip in the right side of the pelvis likely a dropped clip from previous cholecystectomy. Signer Name: Tiburcio Kwok MD Signed: 04/06/2019 7:38 PM Workstation Name: [id number] Transcribed By: KEESHA Dictated By: Tiburcio Kwok MD Electronically Authenticated By: Tiburcio Kwok MD Signed Date/Time: 04/06/191937 DD/ 35 TD/TT: - Medical Decision Making this is hip strain , xray neg for fracture or dislocation plan: ibuprofen prn follow up with pcp as needed. Critical care attestation.: If time is entered above; I have spent that time in minutes in the direct care of this critically ill patient, excluding procedure time. ED Disposition Clinical Impression: Strain of right hip Qualifiers: Encounter type: initial encounter Qualified Code(s): S76.011A - Strain of muscle, fascia and tendon of right hip, initial encounter Disposition: - TO HOME OR SELFCARE Is pt being admited?: No Does the pt Need Aspirin: No Condition: Stable Instructions: Muscle Strain (ED) Prescriptions: Ibuprofen [Motrin 800 MG tab] 800 mg PO Q8HR PRN #30 tablet PRN Reason: pain Referrals: [facility] [Outside] - 3-5 Days Forms: Work/School Release Form(ED)
--- NOTE | 2019-04-06 19:42 | XRay Report ---
LEFT HIP 2 VIEW(S) INDICATION / CLINICAL INFORMATION: left hip pain COMPARISON: CT scan from 09/16/2017 FINDINGS: BONES / JOINT(S): No acute fracture or subluxation. No significant arthritis. SOFT TISSUES: No significant abnormality. ADDITIONAL FINDINGS: Metallic surgical clip in the right side of the pelvis likely a dropped clip fro m previous cholecystectomy. Signer Name: Tiburcio Kwok MD Signed: 04/06/2019 7:38 PM Workstation Name: [id number]
== END 2019-04-06 20:00 | disposition home or self-care (01) ==
LOC: ED 18:32
DX: S76.011A Strain of muscle, fascia and tendon of right hip, initial encounter (principal); E11.9 Type 2 diabetes mellitus without complications; F25.0 Schizoaffective disorder, bipolar type; F17.200 Nicotine dependence, unspecified, uncomplicated; Z98.51 Tubal ligation status; Z79.899 Other long term (current) drug therapy; Z88.8 Allergy status to other drugs, medicaments and biological substances; W18.40XA Slipping, tripping and stumbling without falling, unspecified, initial encounter; Y93.9 Activity, unspecified; Y92.89 Other specified places as the place of occurrence of the external cause; Y99.8 Other external cause status

== ENCOUNTER 2019-10-27 15:03 | Emergency (ER) | payer MEDICAID ==
[2019-10-27 16:43] LABS: Basophils # (Auto) 0.1 K/mm3 (0.0-0.1); Basophils % (Auto) 1.1 % (0.0-1.8); Eosinophils # (Auto) 0.2 K/mm3 (0.0-0.4); Eosinophils % (Auto) 2.5 % (0.0-4.3); Hematocrit 29.6 % (30.3-42.9); Hemoglobin 9.3 gm/dl (10.1-14.3); Lymphocytes # (Auto) 1.6 K/mm3 (1.2-5.4); Lymphocytes % (Auto) 19.8 % (13.4-35.0); Mean Corpuscular HGB Conc 32 % (30-34); Mean Corpuscular Volume 87 fl (79-97); Monocytes # (Auto) 0.7 K/mm3 (0.0-0.8); Monocytes % (Auto) 8.2 % (0.0-7.3); Platelet Count 644 K/mm3 (140-440); Red Cell Distribution Width 15.4 % (13.2-15.2)
[2019-10-27 17:01] LABS: BUN/Creatinine Ratio 35; Blood Urea Nitrogen 14 mg/dL (7-17); Calcium 9.4 mg/dL (8.4-10.2); Hemolysis Index 34
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
--- NOTE | 2019-10-27 19:57 | Cat Scan Report ---
CT lumbar spine wo con INDICATION / CLINICAL INFORMATION: 28 years Female; urinary incontinence. TECHNIQUE: Axial CT images of the lumbar spine were obtained after administration of intrathecal contrast. Sagi ttal and coronal reformatted images were produced. All CT scans at this location are performed using CT dose reduction for ALARA by means of automated exposure control. Study limited by patient body hab itus. COMPARISON: None available. FINDINGS: POST-SURGICAL CHANGES: None. ALIGNMENT: No significant abnormality. VERTEBRAE: No signs of fracture. Vertebral bodies are grossly normal in height throughout. No signif icant facet joint disease or osseous foraminal narrowing appreciated. INTERVERTEBRAL DISCS: No significant abnormality. PARASPINAL SOFT TISSUES: No significant abnormality. ADDITIONAL FINDINGS: Small amount of free fluid seen in the pelvis, which may be physiologic. Prior cholecystectomy noted. IMPRESSION: 1. No definitive cause for patient's symptomatology seen. Signer Name: Dennis Hirsch MD, III Signed: 10/27/2019 7:53 PM Workstation Name: [id number]
--- NOTE | 2019-10-27 20:00 | Cat Scan Report ---
CT ABDOMEN AND PELVIS WITH IV CONTRAST INDICATION: Urinary incontinence TECHNIQUE: Following the administration of intravenous contrast, multiple axial CT images of the abdo men and pelvis were acquired. Sagittal and coronal reformats were obtained. All CT performed at this facility utilize dose reduction techniques including automated exposure control, iterative reconstru ction and weight based dosing when appropriate to reduce patient radiation dose to as low as reasonab ly achievable. COMPARISON: CT of the abdomen and pelvis, 09/16/2017 FINDINGS: Limited imaging of the bilateral lung bases demonstrates no evidence of acute abnormality. Abdomen: The gallbladder has been removed. The liver, spleen, pancreas, bilateral adrenal glands and bilateral kidneys show no evidence of acute abnormality. There is no evidence of bowel obstruction. T he appendix is not clearly identified. The abdominal aorta is normal in caliber. Pelvis: No large amount of free pelvic fluid is visualized. The uterus and urinary bladder appear wit hin normal limits. Bones and Soft Tissues: Evaluation of bony structures demonstrates no evidence of acute bony abnormal ity. Evaluation of soft tissue structures demonstrates a moderate amount of inflammatory stranding al stewart the lower anterior abdominal wall with mild associated skin thickening. IMPRESSION: 1. No CT evidence of acute obstructive process within the abdomen or pelvis. 2. Superficial soft tissue inflammatory changes along the lower anterior abdominal wall. This is a no nspecific finding but may suggest infectious or inflammatory process. Please correlate clinically. Signer Name: Vee Cifuentes MD Signed: 10/27/2019 7:55 PM Workstation Name: [id number]
[2019-10-27 20:18] VITALS: BP 124/79
== END 2019-10-27 20:54 | disposition home or self-care (01) ==
LOC: ED 15:03
DX: R32 Unspecified urinary incontinence (principal); T81.72XA Complication of vein following a procedure, not elsewhere classified, initial encounter; E11.9 Type 2 diabetes mellitus without complications; F31.9 Bipolar disorder, unspecified; F20.9 Schizophrenia, unspecified; J45.909 Unspecified asthma, uncomplicated; Z86.69 Personal history of other diseases of the nervous system and sense organs; Z90.49 Acquired absence of other specified parts of digestive tract; Z98.51 Tubal ligation status; Z79.899 Other long term (current) drug therapy; Z88.8 Allergy status to other drugs, medicaments and biological substances
CPT/HCPCS: 36415; 72131; 74177; 80048; 84703; 85025; 99284; Q9967

== ENCOUNTER 2019-12-04 20:02 | Emergency (ER) | payer MEDICAID ==
[2019-12-04 20:37] VITALS: BP 125/78
--- NOTE | 2019-12-04 20:41 | Emergency Department Report ---
ED Rash HPI - HPI Chief Complaint: Skin Rash Stated Complaint: RASH ON LT BREAST Time Seen by Provider: 12/04/19 20:35 Duration: 2 Days Location: Other (left under breast) Suspected Cause: Unknown Rash Symptoms: Yes Itching, No Facial Swelling, No Tongue/Oral Swelling, No Breathing Difficulties, No Choking Sensation, No Wheezing/Dyspnea, No Peeling, No Blistering, No Fever, No Lightheaded, No Malaise, No Myalgias Severity: mild Other History: This is a 29-year-old female nontoxic well in appearance with no signs of distress presents to the ED with complaint of left under breast redness and itching. Patient denies any swelling, pus, or drainage. Patient denies any other symptoms. Denies any fever, chills, headache, nausea, vomiting, chest pain or SOB. Denies any other complaints. ED Review of Systems ROS: Stated complaint: RASH ON LT BREAST Other details as noted in HPI Constitutional: denies: chills, fever Eyes: denies: eye pain, eye discharge, vision change ENT: denies: ear pain, throat pain Respiratory: denies: cough, shortness of breath, wheezing Cardiovascular: denies: chest pain, palpitations Endocrine: no symptoms reported Gastrointestinal: denies: abdominal pain, nausea, diarrhea Genitourinary: denies: urgency, dysuria, discharge Musculoskeletal: denies: back pain, joint swelling, arthralgia Skin: denies: rash, lesions Neurological: denies: headache, weakness, paresthesias Psychiatric: denies: anxiety, depression Hematological/Lymphatic: denies: easy bleeding, easy bruising ED Past Medical Hx - Past Medical History Hx Hypertension: No Hx Diabetes: Yes Hx Deep Vein Thrombosis: No Hx Renal Disease: No Hx Sickle Cell Disease: No Hx Seizures: Yes (last seizures 3 mths ago) Hx Psychiatric Treatment: Yes (Bipolar, Schizophrenia) Hx Asthma: Yes Hx HIV: No Additional medical history: fibroids, Obesity - Surgical History Hx Cholecystectomy: Yes Additional Surgical History: Tubal Ligation, left wrist and left ankle - Social History Smoking Status: Current Every Day Smoker Substance Use Type: Marijuana - Medications Home Medications: Home Medications Medication Instructions Recorded Confirmed Last Taken Type Tramadol HCl [Ultram] 50 mg PO Q6H PRN #12 tablet 07/10/18 08/20/18 08/20/18 Rx Divalproex ER [DepaKOTE ER] 1,000 mg PO QDAY 08/20/18 08/20/18 08/20/18 History Ibuprofen [Ibuprofen 800] 800 mg PO TID PRN #30 tablet 08/20/18 08/20/18 08/20/18 Rx Nitrofurantoin Monohyd/M-Cryst 100 mg PO BID 7 Days #14 capsule 08/20/18 08/20/18 08/20/18 Rx [Macrobid 100 mg Capsule] Ziprasidone [Geodon] 60 mg PO BID 08/20/18 08/20/18 08/20/18 History clonazePAM [Klonopin] 1 mg PO BID 08/20/18 08/20/18 08/20/18 History haloperidoL [Haldol] 5 mg PO QHS 08/20/18 08/20/18 08/20/18 History Ondansetron [Zofran Odt] 4 mg PO Q8HR PRN #10 tab.rapdis 03/13/19 Unknown Rx Ibuprofen [Motrin 800 MG tab] 800 mg PO Q8HR PRN #30 tablet 04/06/19 Unknown Rx Clotrimazole 1% [Lotrimin 1%] 10 applic TP BID #1 tube 12/04/19 Unknown Rx Rash Exam - Exam General: Vital signs noted. No distress. Alert and acting appropriately. HEENT: No Periorbital Edema, No Conjuctival Injection, No Chemosis, No Perioral Edema, No Tongue Edema, No Uvular Edema, No Compromised Airway, No Drooling Lungs: Yes Good Air Exchange (Normal Breath Sounds), No Wheezes, No Ronchi, No Stridor, No Cough, No Labored Respirations, No Retractions, No Use of Accessory Muscles, No Other Abnormal Lung Sounds Heart: Yes Regular, No Murmur Skin: Yes Erythema, No Urticarial Rash, No Maculopapular Rash, No Morbilliform rash, No Bulla(e), No Excoriations, No Weeping, No Tenderness, No Edema, No Encrustations, No Other Other: Positive: Abdomen Normal, Neurologic Normal, Musculoskeletal Normal ED Course - Reevaluation(s) Reevaluation #1: 12/04/19 20:38 Patient is speaking in full sentences with no signs of distress noted. ED Medical Decision Making - Medical Decision Making This is a 29-year-old female that presents with candidal intertrigo Patient is stable and was examined by me. Patient was instructed to Follow-up with a primary care doctor in 3-5 days or if symptoms worsen and continue return to emergency room as soon as possible. At time of discharge, the patient does not seem toxic or ill in appearance. No acute signs of distress noted. Patient agrees to discharge treatment plan of care. No further questions noted by the patient. Critical care attestation.: If time is entered above; I have spent that time in minutes in the direct care of this critically ill patient, excluding procedure time. ED Disposition Clinical Impression: Candidal intertrigo Disposition: DC-01 TO HOME OR SELFCARE Is pt being admited?: No Does the pt Need Aspirin: No Condition: Stable Additional Instructions: Follow-up with a primary care doctor in 3-5 days or if symptoms worsen and continue return to the emergency department as soon as possible. Prescriptions: Clotrimazole 1% [Lotrimin 1%] 10 applic TP BID #1 tube Referrals: PRIMARY MD OSMIN [Primary Care Provider] - 3-5 Days SANTHOSH BALDERRAMA MD [Staff Physician] - 3-5 Days
== END 2019-12-04 21:11 | disposition home or self-care (01) ==
LOC: ED 20:02
DX: B37.2 Candidiasis of skin and nail (principal); E11.9 Type 2 diabetes mellitus without complications; R56.9 Unspecified convulsions; F31.9 Bipolar disorder, unspecified; F20.9 Schizophrenia, unspecified; J45.909 Unspecified asthma, uncomplicated; F17.200 Nicotine dependence, unspecified, uncomplicated; F12.10 Cannabis abuse, uncomplicated; Z98.51 Tubal ligation status; Z90.49 Acquired absence of other specified parts of digestive tract; Z98.890 Other specified postprocedural states; Z79.1 Long term (current) use of non-steroidal anti-inflammatories (NSAID); Z79.899 Other long term (current) drug therapy; Z88.8 Allergy status to other drugs, medicaments and biological substances
CPT/HCPCS: 99282

== ENCOUNTER 2019-12-05 05:46 | Emergency (ER) | payer MEDICAID ==
[2019-12-05 06:23] LABS: Basophils # (Auto) 0.1 K/mm3 (0.0-0.1); Basophils % (Auto) 1.5 % (0.0-1.8); Eosinophils # (Auto) 0.1 K/mm3 (0.0-0.4); Eosinophils % (Auto) 1.8 % (0.0-4.3); Hematocrit 36.8 % (30.3-42.9); Hemoglobin 11.7 gm/dl (10.1-14.3); Lymphocytes # (Auto) 2.2 K/mm3 (1.2-5.4); Lymphocytes % (Auto) 30.6 % (13.4-35.0); Mean Corpuscular HGB Conc 32 % (30-34); Mean Corpuscular Volume 83 fl (79-97); Monocytes # (Auto) 0.7 K/mm3 (0.0-0.8); Monocytes % (Auto) 9.9 % (0.0-7.3); Platelet Count 319 K/mm3 (140-440); Red Blood Count 4.41 M/mm3 (3.65-5.03); Red Cell Distribution Width 14.5 % (13.2-15.2)
[2019-12-05 06:42] LABS: Blood Urea Nitrogen 12 mg/dL (7-17); Calcium 9.7 mg/dL (8.4-10.2); Hemolysis Index 8
[2019-12-05 06:48] LABS: BUN/Creatinine Ratio 30
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
[2019-12-05 15:34] LABS: Bacteria,Urine 1+ /HPF (Negative); Bilirubin,Urine NEG (Negative); Blood,Urine NEG (Negative); Color,Urine Amber (Yellow); Mucus,Urine 3+ /HPF; Urobilinogen,Urine < 2.0 mg/dL (<2.0)
[2019-12-05 15:36] LABS: Amphetamine Screen,Urine Negative; Benzodiazepines Screen,Urine Negative; Cocaine Screen,Urine Negative; Methadone Screen,Urine Negative; Opiate Screen,Urine Negative
[2019-12-05 16:12] LABS: Cannabinoid Screen,Urine Positive
[2019-12-06 02:37] VITALS: BP 119/60
== END 2019-12-06 02:35 ==
LOC: ED 05:46
DX: R45.851 Suicidal ideations (principal); G40.909 Epilepsy, unspecified, not intractable, without status epilepticus; J45.909 Unspecified asthma, uncomplicated; F25.0 Schizoaffective disorder, bipolar type; F17.200 Nicotine dependence, unspecified, uncomplicated; F12.10 Cannabis abuse, uncomplicated; Z79.899 Other long term (current) drug therapy; Z88.8 Allergy status to other drugs, medicaments and biological substances
CPT/HCPCS: 36415; 80048; 80307; 80320; 81001; 84703; 85025; G0480

== ENCOUNTER 2019-12-13 01:07 | Emergency (ER) | payer MEDICAID ==
[2019-12-13 03:08] LABS: Blood Urea Nitrogen 18 mg/dL (7-17); Calcium 9.4 mg/dL (8.4-10.2); Hemolysis Index 9
[2019-12-13 03:16] LABS: Amphetamine Screen,Urine PRESUMPTIVE NEGATIVE; Benzodiazepines Screen,Urine PRESUMPTIVE NEGATIVE; Cannabinoid Screen,Urine PRESUMPTIVE POSITIVE; Cocaine Screen,Urine PRESUMPTIVE NEGATIVE; Methadone Screen,Urine PRESUMPTIVE NEGATIVE; Opiate Screen,Urine PRESUMPTIVE NEGATIVE
[2019-12-13 03:17] LABS: Bilirubin,Urine NEG (Negative); Blood,Urine NEG (Negative); Color,Urine Yellow (Yellow); Mucus,Urine 3+ /HPF; Protein,Urine <15 mg/dL mg/dL (Negative)
[2019-12-13 03:19] LABS: BUN/Creatinine Ratio 36
[2019-12-13 03:24] LABS: Basophils % (Auto) 0.4 % (0.0-1.8); Eosinophils # (Auto) 0.1 K/mm3 (0.0-0.4); Eosinophils % (Auto) 0.6 % (0.0-4.3); Hematocrit 35.6 % (30.3-42.9); Hemoglobin 11.7 gm/dl (10.1-14.3); Lymphocytes # (Auto) 1.9 K/mm3 (1.2-5.4); Lymphocytes % (Auto) 20.7 % (13.4-35.0); Mean Corpuscular HGB Conc 33 % (30-34); Mean Corpuscular Volume 83 fl (79-97); Monocytes # (Auto) 0.6 K/mm3 (0.0-0.8); Monocytes % (Auto) 6.9 % (0.0-7.3); Platelet Count 254 K/mm3 (140-440); Red Blood Count 4.32 M/mm3 (3.65-5.03); Red Cell Distribution Width 14.5 % (13.2-15.2)
[2019-12-13] MEDS ORDERED: LORazepam 1 MG TAB PO ONE (08:33)
--- NOTE | 2019-12-13 08:34 | Emergency Department Report ---
<KIRA PEREZ - Last Filed: 12/13/19 08:30> ED Psych HPI - General Chief Complaint: Psych Stated Complaint: MH EVALUATION Time Seen by Provider: 12/13/19 03:03 Source: patient Mode of arrival: Ambulatory - History of Present Illness Initial Comments: 29-year-old female history of schizophrenia, bipolar disorder, presents to ED stating "I feel like I am having a schizophrenia attack." Patient states that she is feeling paranoid, thinks that people are following her and out to get her. Orts visible hallucinations, seeing pain, but not knowing what they are. She denies any SI or HI. -: unknown Associated Psychiatric Symptoms: visual hallucinations History of same: Yes Quality: constant Improves With: none Worsens With: none Associated Symptoms: denies other symptoms Treatments Prior to Arrival: none - Related Data Home Medications Medication Instructions Recorded Confirmed Last Taken Divalproex ER [DepaKOTE ER] 1,000 mg PO QDAY 08/20/18 08/20/18 08/20/18 Ziprasidone [Geodon] 60 mg PO BID 08/20/18 08/20/18 08/20/18 clonazePAM [Klonopin] 1 mg PO BID 08/20/18 08/20/18 08/20/18 haloperidoL [Haldol] 5 mg PO QHS 08/20/18 08/20/18 08/20/18 Previous Rx's Medication Instructions Recorded Last Taken Type Tramadol HCl [Ultram] 50 mg PO Q6H PRN #12 tablet 07/10/18 08/20/18 Rx Ibuprofen [Ibuprofen 800] 800 mg PO TID PRN #30 tablet 08/20/18 08/20/18 Rx Nitrofurantoin Monohyd/M-Cryst 100 mg PO BID 7 Days #14 capsule 08/20/18 08/20/18 Rx [Macrobid 100 mg Capsule] Ondansetron [Zofran Odt] 4 mg PO Q8HR PRN #10 tab.rapdis 03/13/19 Unknown Rx Ibuprofen [Motrin 800 MG tab] 800 mg PO Q8HR PRN #30 tablet 04/06/19 Unknown Rx Clotrimazole 1% [Lotrimin 1%] 10 applic TP BID #1 tube 12/04/19 Unknown Rx Allergies Allergy/AdvReac Type Severity Reaction Status Date / Time aripiprazole [From Abilify] Allergy Hives Verified 08/20/18 17:43 chlorpromazine Allergy Hives Verified 08/20/18 17:43 [From Thorazine] ED Review of Systems Comment: All other systems reviewed and negative Psychiatric: visual hallucinations, other (Reports paranoia). denies: homicidal thoughts, suicidal thoughts ED Past Medical Hx - Past Medical History Previous Medical History?: Yes Hx Hypertension: No Hx Diabetes: Yes Hx Deep Vein Thrombosis: No Hx Renal Disease: No Hx Sickle Cell Disease: No Hx Seizures: Yes (last seizures 3 mths ago) Hx Psychiatric Treatment: Yes (Bipolar, Schizophrenia) Hx Asthma: Yes Hx HIV: No Additional medical history: fibroids, Obesity - Surgical History Past Surgical History?: Yes Hx Cholecystectomy: Yes Additional Surgical History: Tubal Ligation, left wrist and left ankle - Social History Smoking Status: Never Smoker Substance Use Type: None - Medications Home Medications: Home Medications Medication Instructions Recorded Confirmed Last Taken Type Tramadol HCl [Ultram] 50 mg PO Q6H PRN #12 tablet 07/10/18 08/20/18 08/20/18 Rx Divalproex ER [DepaKOTE ER] 1,000 mg PO QDAY 08/20/18 08/20/18 08/20/18 History Ibuprofen [Ibuprofen 800] 800 mg PO TID PRN #30 tablet 08/20/18 08/20/18 08/20/18 Rx Nitrofurantoin Monohyd/M-Cryst 100 mg PO BID 7 Days #14 capsule 08/20/18 08/20/18 08/20/18 Rx [Macrobid 100 mg Capsule] Ziprasidone [Geodon] 60 mg PO BID 08/20/18 08/20/18 08/20/18 History clonazePAM [Klonopin] 1 mg PO BID 08/20/18 08/20/18 08/20/18 History haloperidoL [Haldol] 5 mg PO QHS 08/20/18 08/20/18 08/20/18 History Ondansetron [Zofran Odt] 4 mg PO Q8HR PRN #10 tab.rapdis 03/13/19 Unknown Rx Ibuprofen [Motrin 800 MG tab] 800 mg PO Q8HR PRN #30 tablet 04/06/19 Unknown Rx Clotrimazole 1% [Lotrimin 1%] 10 applic TP BID #1 tube 12/04/19 Unknown Rx ED Physical Exam - General Limitations: No Limitations General appearance: alert, in no apparent distress - Head Head exam: Present: atraumatic, normocephalic - Eye Eye exam: Present: normal appearance, EOMI - ENT ENT exam: Present: mucous membranes moist - Neck Neck exam: Present: normal inspection - Respiratory Respiratory exam: Present: normal lung sounds bilaterally. Absent: respiratory distress - Cardiovascular Cardiovascular Exam: Present: regular rate - GI/Abdominal GI/Abdominal exam: Absent: distended - Extremities Exam Extremities exam: Present: normal inspection - Neurological Exam Neurological exam: Present: alert, oriented X3 - Psychiatric Psychiatric exam: Present: anxious, other (Paranoid). Absent: homicidal ideatio n, suicidal ideation - Skin Skin exam: Present: warm, dry, intact, normal color ED Medical Decision Making - Lab Data Result diagrams: 12/13/19 02:02 12/13/19 02:02 ED Disposition Clinical Impression: Suicidal ideation Disposition: DC-01 TO HOME OR SELFCARE Condition: Stable Referrals: PRIMARY CARE, [Primary Care Provider] - 3-5 Days <NAYANA MOONEY - Last Filed: 12/13/19 19:20> ED Review of Systems ROS: Stated complaint: MH EVALUATION Other details as noted in HPI ED Course Vital Signs 12/13/19 12/13/19 12/13/19 01:13 08:37 08:38 Temperature 98.2 F 98.3 F Pulse Rate 87 87 87 Respiratory 18 19 Rate Blood Pressure 144/92 Blood Pressure 163/75 [Left] O2 Sat by Pulse 100 Oximetry ED Medical Decision Making - Lab Data Result diagrams: 12/13/19 02:02 12/13/19 02:02 - Medical Decision Making Our mental health team recommended discharge home for outpatient treatment. I have provided discharge order and appropriate instructions. Critical care attestation.: If time is entered above; I have spent that time in minutes in the direct care of this critically ill patient, excluding procedure time. ED Disposition Is pt being admited?: No Does the pt Need Aspirin: No
[2019-12-13 20:04] VITALS: BP 145/71
== END 2019-12-13 19:30 | disposition home or self-care (01) ==
LOC: ED 01:07 → EEVIPCON 01:07 → ED 19:30
DX: R45.851 Suicidal ideations (principal); E11.9 Type 2 diabetes mellitus without complications; R56.9 Unspecified convulsions; F20.9 Schizophrenia, unspecified; J45.909 Unspecified asthma, uncomplicated; Z90.49 Acquired absence of other specified parts of digestive tract; Z98.890 Other specified postprocedural states; Z98.51 Tubal ligation status; Z79.1 Long term (current) use of non-steroidal anti-inflammatories (NSAID); Z79.899 Other long term (current) drug therapy; Z88.8 Allergy status to other drugs, medicaments and biological substances
CPT/HCPCS: 36415; 80048; 80307; 80320; 81001; 84703; 85025; 87086; G0480

== ENCOUNTER 2019-12-14 18:39 | Emergency (ER) | payer MEDICAID ==
[2019-12-14 19:03] VITALS: BP 112/81
[2019-12-14] MEDS ORDERED: traMADol 50 MG TAB PO ONE (23:18)
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
== END 2019-12-15 00:15 | disposition home or self-care (01) ==
LOC: ED 18:39
DX: M25.532 Pain in left wrist (principal); M79.604 Pain in right leg; E11.9 Type 2 diabetes mellitus without complications; J45.909 Unspecified asthma, uncomplicated; F20.89 Other schizophrenia; F31.9 Bipolar disorder, unspecified; F17.200 Nicotine dependence, unspecified, uncomplicated; F12.10 Cannabis abuse, uncomplicated; Z79.899 Other long term (current) drug therapy; Z88.6 Allergy status to analgesic agent
CPT/HCPCS: 99282

== ENCOUNTER 2019-12-28 00:56 | Emergency (ER) | payer MEDICAID ==
[2019-12-28 04:20] VITALS: BP 151/85
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
== END 2019-12-28 06:59 | disposition left against medical advice (07) ==
LOC: ED 00:56
DX: M25.571 Pain in right ankle and joints of right foot (principal); Z00.00 Encounter for general adult medical examination without abnormal findings; Z53.21 Procedure and treatment not carried out due to patient leaving prior to being seen by health care provider

== ENCOUNTER 2020-02-22 00:58 | Emergency (ER) | payer MEDICAID ==
[2020-02-22 03:23] LABS: Basophils % (Auto) 0.4 % (0.0-1.8); Eosinophils # (Auto) 0.2 K/mm3 (0.0-0.4); Eosinophils % (Auto) 1.9 % (0.0-4.3); Hematocrit 37.8 % (30.3-42.9); Hemoglobin 12.3 gm/dl (10.1-14.3); Lymphocytes # (Auto) 2.5 K/mm3 (1.2-5.4); Mean Corpuscular HGB Conc 33 % (30-34); Mean Corpuscular Volume 82 fl (79-97); Monocytes # (Auto) 0.9 K/mm3 (0.0-0.8); Monocytes % (Auto) 9.3 % (0.0-7.3); Platelet Count 227 K/mm3 (140-440); Red Blood Count 4.61 M/mm3 (3.65-5.03)
[2020-02-22 03:31] LABS: Blood Urea Nitrogen 17 mg/dL (7-17); Calcium 9.2 mg/dL (8.4-10.2); Hemolysis Index 7
[2020-02-22 03:39] LABS: BUN/Creatinine Ratio 28
[2020-02-22 12:45] LABS: INR 0.98 (0.87-1.13); Partial Thromboplastin Time 28.5 Sec. (24.2-36.6)
[2020-02-22 14:18] VITALS: BP 124/75
--- NOTE | 2020-02-22 15:16 | Emergency Department Report ---
ED GI Bleed HPI - General Chief complaint: GI Bleed Stated complaint: BLOOD IN STOOL Time Seen by Provider: 02/22/20 14:07 Source: patient Mode of arrival: Ambulatory Limitations: No Limitations - History of Present Illness Initial comments: Patient evaluated during downtime procedures. Electronic chart was unavailable. This electronic medical record is being dictated from my note written notes. 29-year-old female presents to ED reporting blood in stool x2 days. She also reports some nausea and vomiting, nonbloody. Patient denies any abdominal pain or fever. MD complaint: blood streaked stool -: days(s) (2) Quality: painless Consistency: constant Improves with: none Worsens with: bowel movement Associated Symptoms: nausea, vomiting. denies: abdominal pain, fever/chills - Related Data Home Medications Medication Instructions Recorded Confirmed Last Taken Divalproex ER [DepaKOTE ER] 1,000 mg PO QDAY 08/20/18 08/20/18 08/20/18 Ziprasidone [Geodon] 60 mg PO BID 08/20/18 08/20/18 08/20/18 clonazePAM [Klonopin] 1 mg PO BID 08/20/18 08/20/18 08/20/18 haloperidoL [Haldol] 5 mg PO QHS 08/20/18 08/20/18 08/20/18 Previous Rx's Medication Instructions Recorded Last Taken Type Tramadol HCl [Ultram] 50 mg PO Q6H PRN #12 tablet 07/10/18 08/20/18 Rx Ibuprofen [Ibuprofen 800] 800 mg PO TID PRN #30 tablet 08/20/18 08/20/18 Rx Nitrofurantoin Monohyd/M-Cryst 100 mg PO BID 7 Days #14 capsule 08/20/18 08/20/18 Rx [Macrobid 100 mg Capsule] Ondansetron [Zofran Odt] 4 mg PO Q8HR PRN #10 tab.rapdis 03/13/19 Unknown Rx Ibuprofen [Motrin 800 MG tab] 800 mg PO Q8HR PRN #30 tablet 04/06/19 Unknown Rx Clotrimazole 1% [Lotrimin 1%] 10 applic TP BID #1 tube 12/04/19 Unknown Rx Naproxen [Naprosyn] 500 mg PO BID PRN #30 tablet 12/14/19 Unknown Rx Allergies Allergy/AdvReac Type Severity Reaction Status Date / Time aripiprazole [From Abilify] Allergy Hives Verified 08/20/18 17:43 chlorpromazine Allergy Hives Verified 08/20/18 17:43 [From Thorazine] ED Review of Systems ROS: Stated complaint: BLOOD IN STOOL Other details as noted in HPI Comment: All other systems reviewed and negative Constitutional: denies: chills, fever Gastrointestinal: abdominal pain, hematochezia. denies: nausea, vomiting, diarrhea ED Past Medical Hx - Past Medical History Previous Medical History?: Yes Hx Hypertension: No Hx Diabetes: Yes Hx Deep Vein Thrombosis: No Hx Renal Disease: No Hx Sickle Cell Disease: No Hx Seizures: Yes (last seizures 3 mths ago) Hx Psychiatric Treatment: Yes (Bipolar, Schizophrenia) Hx Asthma: Yes Hx HIV: No Additional medical history: fibroids, Obesity - Surgical History Past Surgical History?: Yes Hx Cholecystectomy: Yes Additional Surgical History: Tubal Ligation, left wrist and left ankle - Social History Smoking Status: Current Every Day Smoker Substance Use Type: Cocaine, Marijuana - Medications Home Medications: Home Medications Medication Instructions Recorded Confirmed Last Taken Type Tramadol HCl [Ultram] 50 mg PO Q6H PRN #12 tablet 07/10/18 08/20/18 08/20/18 Rx Divalproex ER [DepaKOTE ER] 1,000 mg PO QDAY 08/20/18 08/20/18 08/20/18 History Ibuprofen [Ibuprofen 800] 800 mg PO TID PRN #30 tablet 08/20/18 08/20/18 08/20/18 Rx Nitrofurantoin Monohyd/M-Cryst 100 mg PO BID 7 Days #14 capsule 08/20/18 08/20/18 08/20/18 Rx [Macrobid 100 mg Capsule] Ziprasidone [Geodon] 60 mg PO BID 08/20/18 08/20/18 08/20/18 History clonazePAM [Klonopin] 1 mg PO BID 08/20/18 08/20/18 08/20/18 History haloperidoL [Haldol] 5 mg PO QHS 08/20/18 08/20/18 08/20/18 History Ondansetron [Zofran Odt] 4 mg PO Q8HR PRN #10 tab.rapdis 03/13/19 Unknown Rx Ibuprofen [Motrin 800 MG tab] 800 mg PO Q8HR PRN #30 tablet 04/06/19 Unknown Rx Clotrimazole 1% [Lotrimin 1%] 10 applic TP BID #1 tube 12/04/19 Unknown Rx Naproxen [Naprosyn] 500 mg PO BID PRN #30 tablet 12/14/19 Unknown Rx ED Physical Exam - General Limitations: No Limitations General appearance: alert, in no apparent distress - Head Head exam: Present: atraumatic, normocephalic - Eye Eye exam: Present: normal appearance, EOMI - ENT ENT exam: Present: mucous membranes moist - Neck Neck exam: Present: normal inspection - Respiratory Respiratory exam: Present: normal lung sounds bilaterally. Absent: respiratory distress - Cardiovascular Cardiovascular Exam: Present: regular rate, normal rhythm - GI/Abdominal GI/Abdominal exam: Present: soft. Absent: distended, tenderness - Extremities Exam Extremities exam: Present: normal inspection - Neurological Exam Neurological exam: Present: alert, oriented X3 - Psychiatric Psychiatric exam: Present: normal affect, normal mood - Skin Skin exam: Present: warm, dry, intact, normal color ED Course Vital Signs 02/22/20 02/22/20 01:16 13:00 Temperature 98.6 F Pulse Rate 67 62 Respiratory 18 16 Rate Blood Pressure 112/73 Blood Pressure 124/75 [Left] O2 Sat by Pulse 97 99 Oximetry ED Medical Decision Making - Lab Data Result diagrams: 02/22/20 02:50 02/22/20 02:50 - Medical Decision Making Vital signs normal. CBC and coags are both normal. No active bleeding at this time, no episodes of bleeding here in the ED. She has been advised to follow-up with GI on an outpatient basis. - Differential Diagnosis Anemia, GI bleed Critical care attestation.: If time is entered above; I have spent that time in minutes in the direct care of this critically ill patient, excluding procedure time. ED Disposition Clinical Impression: GI bleed Disposition: DC-01 TO HOME OR SELFCARE Is pt being admited?: No Condition: Stable Instructions: Gastrointestinal Bleeding (ED) Referrals: [facility] [Provider Group] - 3-5 Days Forms: Accompanied Note
== END 2020-02-22 14:07 | disposition home or self-care (01) ==
LOC: ED 00:58
DX: K92.2 Gastrointestinal hemorrhage, unspecified (principal); E11.9 Type 2 diabetes mellitus without complications; R56.9 Unspecified convulsions; F20.9 Schizophrenia, unspecified; F31.9 Bipolar disorder, unspecified; M19.91 Primary osteoarthritis, unspecified site; F17.200 Nicotine dependence, unspecified, uncomplicated; F12.10 Cannabis abuse, uncomplicated; F14.10 Cocaine abuse, uncomplicated; Z90.49 Acquired absence of other specified parts of digestive tract; Z98.51 Tubal ligation status; Z98.890 Other specified postprocedural states; Z79.1 Long term (current) use of non-steroidal anti-inflammatories (NSAID); Z79.899 Other long term (current) drug therapy; Z88.8 Allergy status to other drugs, medicaments and biological substances
CPT/HCPCS: 36415; 80048; 85025; 85610; 85730

== ENCOUNTER 2020-03-04 22:17 | Emergency (ER) | payer MEDICAID ==
[2020-03-04 22:52] VITALS: BP 132/79
[2020-03-05] MEDS ORDERED: IBUPROFEN 600 MG TAB PO ONE (02:39)
[2020-03-05] MEDS ORDERED: ACETAMINOPHEN 500 MG TAB PO ONE (02:39)
[2020-03-05] MEDS ORDERED: predniSONE 20 MG TAB PO ONE (02:39)
[2020-03-05] MEDS ORDERED: ONDANSETRON 4 MG ODT TAB PO ONE (02:40)
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
== END 2020-03-05 03:40 | disposition home or self-care (01) ==
LOC: ED 22:17
DX: S93.401A Sprain of unspecified ligament of right ankle, initial encounter (principal); M19.071 Primary osteoarthritis, right ankle and foot; E11.9 Type 2 diabetes mellitus without complications; R56.9 Unspecified convulsions; F31.9 Bipolar disorder, unspecified; J45.909 Unspecified asthma, uncomplicated; Z90.49 Acquired absence of other specified parts of digestive tract; Z98.890 Other specified postprocedural states; Z98.51 Tubal ligation status; Z79.1 Long term (current) use of non-steroidal anti-inflammatories (NSAID); Z79.899 Other long term (current) drug therapy; Z88.8 Allergy status to other drugs, medicaments and biological substances; V89.2XXA Person injured in unspecified motor-vehicle accident, traffic, initial encounter; Y93.89 Activity, other specified; Y92.410 Unspecified street and highway as the place of occurrence of the external cause; Y99.8 Other external cause status
CPT/HCPCS: 99282; J7512; Q0162

== ENCOUNTER 2020-03-05 04:21 | Emergency (ER) | payer MEDICAID ==
[2020-03-05 05:14] LABS: Basophils % (Auto) 0.5 % (0.0-1.8); Eosinophils # (Auto) 0.2 K/mm3 (0.0-0.4); Eosinophils % (Auto) 3.1 % (0.0-4.3); Hematocrit 35.9 % (30.3-42.9); Hemoglobin 11.8 gm/dl (10.1-14.3); Lymphocytes # (Auto) 1.5 K/mm3 (1.2-5.4); Lymphocytes % (Auto) 18.5 % (13.4-35.0); Mean Corpuscular HGB Conc 33 % (30-34); Mean Corpuscular Volume 81 fl (79-97); Monocytes # (Auto) 0.5 K/mm3 (0.0-0.8); Monocytes % (Auto) 6.2 % (0.0-7.3); Platelet Count 226 K/mm3 (140-440)
[2020-03-05 05:38] LABS: Blood Urea Nitrogen 13 mg/dL (7-17); Hemolysis Index 6
[2020-03-05 05:43] LABS: BUN/Creatinine Ratio 33
[2020-03-05] MEDS ORDERED: LORazepam 2 MG/ML VIAL IM PRN (06:26)
[2020-03-05] MEDS ORDERED: HALOPERIDOL LACTATE 5 MG/1 ML INJ IM PRN (06:26)
[2020-03-05] MEDS ORDERED: IBUPROFEN 400 MG TAB PO PRN (06:27)
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
[2020-03-05 07:05] LABS: Bacteria,Urine 1+ /HPF (Negative); Bilirubin,Urine NEG (Negative); Blood,Urine NEG (Negative); Color,Urine Amber (Yellow); Mucus,Urine 3+ /HPF
[2020-03-05 07:20] LABS: HCG Qualitative,Urine Negative (Negative)
[2020-03-05 07:58] LABS: Amphetamine Screen,Urine Negative; Benzodiazepines Screen,Urine Negative; Cocaine Screen,Urine Negative; Methadone Screen,Urine Negative; Opiate Screen,Urine Negative
[2020-03-05 08:15] LABS: Cannabinoid Screen,Urine Positive
[2020-03-05 16:25] VITALS: BP 129/79
== END 2020-03-05 19:45 ==
LOC: ED 04:21
DX: M25.571 Pain in right ankle and joints of right foot (principal); F43.20 Adjustment disorder, unspecified; E11.9 Type 2 diabetes mellitus without complications; G43.909 Migraine, unspecified, not intractable, without status migrainosus; F25.0 Schizoaffective disorder, bipolar type; J45.909 Unspecified asthma, uncomplicated; F17.200 Nicotine dependence, unspecified, uncomplicated; F12.10 Cannabis abuse, uncomplicated; Z04.6 Encounter for general psychiatric examination, requested by authority; Z59.0 Homelessness; Z98.51 Tubal ligation status; Z90.49 Acquired absence of other specified parts of digestive tract; Z79.899 Other long term (current) drug therapy; Z88.8 Allergy status to other drugs, medicaments and biological substances
CPT/HCPCS: 36415; 80048; 80307; 81001; 81025; 85025; 96372; 99285; J2060; 80320; G0480

== ENCOUNTER 2021-11-23 23:33 | Emergency (ER) | payer SELFPAY ==
[2021-11-24 00:43] VITALS: BP 142/98
[2021-11-24 09:53] LABS: Mucus,Urine 3+ /HPF
[2021-11-24 10:05] LABS: HCG Qualitative,Urine Negative (Negative)
[2021-11-24 10:06] LABS: Bilirubin,Urine Negative (Negative); Blood,Urine Negative (Negative); Color,Urine Yellow (Yellow); Urobilinogen,Urine < 2.0 mg/dL (<2.0)
[2021-11-24] MEDS ORDERED: LIDOCAINE-MPF (1%) 10 MG/1 ML VIAL 5 ML INFILTRATI ONE (10:09)
--- NOTE | 2021-11-24 10:09 | Emergency Department Report ---
ED Dysuria HPI - HPI Chief Complaint: Abdominal Pain Stated Complaint: ABD PAIN Time Seen by Provider: 11/24/21 06:46 ED Review of Systems ROS: Stated complaint: ABD PAIN Other details as noted in HPI Comment: All other systems reviewed and negative ED Past Medical Hx - Past Medical History Previous Medical History?: Yes Hx Hypertension: No Hx Diabetes: Yes Hx Deep Vein Thrombosis: No Hx Renal Disease: No Hx Sickle Cell Disease: No Hx Seizures: Yes (last seizures 3 mths ago) Hx Psychiatric Treatment: Yes (Bipolar, Schizophrenia) Hx Asthma: Yes Hx HIV: No Additional medical history: fibroids, Obesity - Surgical History Past Surgical History?: Yes Hx Cholecystectomy: Yes Additional Surgical History: Tubal Ligation, left wrist and left ankle - Family History Family history: no significant - Social History Smoking Status: Never Smoker Substance Use Type: Marijuana - Medications Home Medications: Home Medications Medication Instructions Recorded Confirmed Last Taken Type haloperidoL [Haldol] 5 mg PO QHS 08/20/18 03/05/20 08/20/18 History levETIRAcetam [Keppra TAB] 1,000 mg PO BID 03/05/20 03/05/20 Unknown History Fluconazole [Diflucan TAB] 100 mg PO QDAY #2 tablet 11/24/21 Unknown Rx Sulfamethoxazole/Trimethoprim 1 each PO BID #10 tablet 11/24/21 Unknown Rx [Bactrim DS TAB] Dysuria Exam - Exam General: Vital signs noted. No distress. Alert and acting appropriately. Exam: Yes Moist Mucous Membranes, No CVA Tenderness, No Abdominal Tenderness, No Rigidity or Guarding Labs: Lab Results 11/24/21 Range/Units Unknown Urine Color Yellow (Yellow) Urine Turbidity Cloudy (Clear) Urine pH 5.0 (5.0-7.0) Ur Specific [place] 1.015 (1.003-1.030) Urine Protein 30 mg/dl (Negative) mg/dL Urine Glucose (UA) Negative (Negative) mg/dL Urine Ketones Negative (Negative) mg/dL Urine Blood Negative (Negative) Urine Nitrite Negative (Negative) Ur Reducing Substances Not Reportable Urine Bilirubin Negative (Negative) Urine Ictotest Not Reportable Urine Urobilinogen < 2.0 (<2.0) mg/dL Ur Leukocyte Esterase Trace (Negative) Urine WBC (Auto) 51.0 H (0.0-6.0) /HPF Urine RBC (Auto) 7.0 (0.0-6.0) /HPF U Epithel Cells (Auto) 8.0 (0-13.0) /HPF Urine Mucus 3+ /HPF Urine Yeast (Budding) 1+ /HPF Urine HCG, Qual Negative (Negative) ED Course Vital Signs 11/23/21 23:34 Temperature 98 F Pulse Rate 82 Respiratory 18 Rate Blood Pressure 142/98 O2 Sat by Pulse 100 Oximetry ED Medical Decision Making - Medical Decision Making Vital Signs 11/23/21 23:34 Temperature 98 F Pulse Rate 82 Respiratory 18 Rate Blood Pressure 142/98 O2 Sat by Pulse 100 Oximetry Lab Results 11/24/21 Range/Units Unknown Urine Color Yellow (Yellow) Urine Turbidity Cloudy (Clear) Urine pH 5.0 (5.0-7.0) Ur Specific [place] 1.015 (1.003-1.030) Urine Protein 30 mg/dl (Negative) mg/dL Urine Glucose (UA) Negative (Negative) mg/dL Urine Ketones Negative (Negative) mg/dL Urine Blood Negative (Negative) Urine Nitrite Negative (Negative) Ur Reducing Substances Not Reportable Urine Bilirubin Negative (Negative) Urine Ictotest Not Reportable Urine Urobilinogen < 2.0 (<2.0) mg/dL Ur Leukocyte Esterase Trace (Negative) Urine WBC (Auto) 51.0 H (0.0-6.0) /HPF Urine RBC (Auto) 7.0 (0.0-6.0) /HPF U Epithel Cells (Auto) 8.0 (0-13.0) /HPF Urine Mucus 3+ /HPF Urine Yeast (Budding) 1+ /HPF Urine HCG, Qual Negative (Negative) rocephin 1 gm IM in ER Critical care attestation.: If time is entered above; I have spent that time in minutes in the direct care of this critically ill patient, excluding procedure time. ED Disposition Clinical Impression: UTI (urinary tract infection), Vaginitis Disposition: HOME / SELF CARE / HOMELESS Is pt being admited?: No Does the pt Need Aspirin: No Condition: Stable Instructions: Abdominal Pain (ED), Urinary Tract Infection, Adult, [id number] Additional Instructions: meds as ordered today until gone motrin or tylenol for pain eat yogurt daily follow up with pcp and or obgyn when you complete meds Referrals: SANTHOSH BALDERRAMA MD [Staff Physician] - 3-5 Days GUSTAVO JRUADO MD [Staff Physician] - 3-5 Days Forms: Work/School Release Form(ED) Time of Disposition: 10:12
== END 2021-11-24 10:20 | disposition home or self-care (01) ==
LOC: ED 23:33
DX: N76.0 Acute vaginitis (principal); N39.0 Urinary tract infection, site not specified; E11.9 Type 2 diabetes mellitus without complications; F31.9 Bipolar disorder, unspecified; F20.9 Schizophrenia, unspecified; J45.909 Unspecified asthma, uncomplicated; F12.90 Cannabis use, unspecified, uncomplicated; Z88.8 Allergy status to other drugs, medicaments and biological substances; Z98.51 Tubal ligation status; Z79.899 Other long term (current) drug therapy
CPT/HCPCS: 81001; 81025; 87086; 99283

== ENCOUNTER 2021-11-25 00:43 | Emergency (ER) | payer SELFPAY ==
[2021-11-25 08:28] LABS: Bacteria,Urine 1+ /HPF (Negative); Mucus,Urine 3+ /HPF
[2021-11-25 08:54] LABS: Bilirubin,Urine 1+ (Negative); Blood,Urine Negative (Negative); Color,Urine DK YELLOW (Yellow)
[2021-11-25 08:55] LABS: HCG Qualitative,Urine Negative (Negative); Ictotest,Urine Negative (Negative)
[2021-11-25] MEDS ORDERED: IBUPROFEN 800 MG TAB PO ONE (09:00)
[2021-11-25] MEDS ORDERED: LIDOCAINE-MPF (1%) 10 MG/1 ML VIAL 5 ML INFILTRATI ONE (09:00)
--- NOTE | 2021-11-25 09:01 | Emergency Department Report ---
ED Dysuria HPI - HPI Chief Complaint: Abdominal Pain Stated Complaint: ABD PAIN Time Seen by Provider: 11/25/21 07:46 ED Review of Systems ROS: Stated complaint: ABD PAIN Other details as noted in HPI Comment: All other systems reviewed and negative ED Past Medical Hx - Past Medical History Previous Medical History?: Yes Hx Hypertension: No Hx Diabetes: Yes Hx Deep Vein Thrombosis: No Hx Renal Disease: No Hx Sickle Cell Disease: No Hx Seizures: Yes (last seizures 3 mths ago) Hx Psychiatric Treatment: Yes (Bipolar, Schizophrenia) Hx Asthma: Yes Hx HIV: No Additional medical history: fibroids, Obesity - Surgical History Past Surgical History?: Yes Hx Cholecystectomy: Yes Additional Surgical History: Tubal Ligation, left wrist and left ankle - Family History Family history: no significant - Social History Smoking Status: Never Smoker Substance Use Type: Marijuana - Medications Home Medications: Home Medications Medication Instructions Recorded Confirmed Last Taken Type haloperidoL [Haldol] 5 mg PO QHS 08/20/18 03/05/20 08/20/18 History levETIRAcetam [Keppra TAB] 1,000 mg PO BID 03/05/20 03/05/20 Unknown History Fluconazole [Diflucan TAB] 100 mg PO QDAY #2 tablet 11/24/21 Unknown Rx Sulfamethoxazole/Trimethoprim 1 each PO BID #10 tablet 11/24/21 Unknown Rx [Bactrim DS TAB] Sulfamethoxazole/Trimethoprim 1 each PO BID #10 tablet 11/25/21 Unknown Rx [Bactrim DS TAB] Dysuria Exam - Exam General: Vital signs noted. No distress. Alert and acting appropriately. Exam: Yes Moist Mucous Membranes, No CVA Tenderness, No Abdominal Tenderness, No Rigidity or Guarding Labs: Lab Results 11/25/21 Range/Units 08:12 Urine Color Dk yellow (Yellow) Urine Turbidity Clear (Clear) Urine pH 6.0 (5.0-7.0) Ur Specific [place] 1.020 (1.003-1.030) Urine Protein 30 mg/dl (Negative) mg/dL Urine Glucose (UA) Negative (Negative) mg/dL Urine Ketones Negative (Negative) mg/dL Urine Blood Negative (Negative) Urine Nitrite Negative (Negative) Ur Reducing Substances Not Reportable Urine Bilirubin 1+ (Negative) Urine Ictotest Negative (Negative) Urine Urobilinogen 0.0 (<2.0) mg/dL Ur Leukocyte Esterase 1+ (Negative) Urine WBC (Auto) 55.0 H (0.0-6.0) /HPF Urine RBC (Auto) 2.0 (0.0-6.0) /HPF U Epithel Cells (Auto) 39.0 H (0-13.0) /HPF Urine Bacteria (Auto) 1+ (Negative) /HPF Urine Mucus 3+ /HPF Urine HCG, Qual Negative (Negative) ED Course Vital Signs 11/25/21 00:46 Temperature 98.3 F Pulse Rate 89 Respiratory 16 Rate Blood Pressure 150/90 [Right] O2 Sat by Pulse 99 Oximetry ED Medical Decision Making - Medical Decision Making Vital Signs 11/25/21 00:46 Temperature 98.3 F Pulse Rate 89 Respiratory 16 Rate Blood Pressure 150/90 [Right] O2 Sat by Pulse 99 Oximetry Lab Results 11/25/21 Range/Units 08:12 Urine Color Dk yellow (Yellow) Urine Turbidity Clear (Clear) Urine pH 6.0 (5.0-7.0) Ur Specific [place] 1.020 (1.003-1.030) Urine Protein 30 mg/dl (Negative) mg/dL Urine Glucose (UA) Negative (Negative) mg/dL Urine Ketones Negative (Negative) mg/dL Urine Blood Negative (Negative) Urine Nitrite Negative (Negative) Ur Reducing Substances Not Reportable Urine Bilirubin 1+ (Negative) Urine Ictotest Negative (Negative) Urine Urobilinogen 0.0 (<2.0) mg/dL Ur Leukocyte Esterase 1+ (Negative) Urine WBC (Auto) 55.0 H (0.0-6.0) /HPF Urine RBC (Auto) 2.0 (0.0-6.0) /HPF U Epithel Cells (Auto) 39.0 H (0-13.0) /HPF Urine Bacteria (Auto) 1+ (Negative) /HPF Urine Mucus 3+ /HPF Urine HCG, Qual Negative (Negative) Critical care attestation.: If time is entered above; I have spent that time in minutes in the direct care of this critically ill patient, excluding procedure time. ED Disposition Clinical Impression: UTI (urinary tract infection) Disposition: 01 HOME / SELF CARE / HOMELESS Is pt being admited?: No Does the pt Need Aspirin: No Condition: Stable Instructions: Abdominal Pain (ED), Urinary Tract Infection, Adult Additional Instructions: med as ordered today until gone motrin or tylenol for pain stay well hydrated follow up with pcp in 48 hours referral below Referrals: SANTHOSH BALDERRAMA MD [Staff Physician] - 3-5 Days Time of Disposition: 09:23
[2021-11-25 09:59] VITALS: BP 138/78
== END 2021-11-25 10:00 | disposition home or self-care (01) ==
LOC: ED 00:43
DX: N39.0 Urinary tract infection, site not specified (principal); E11.9 Type 2 diabetes mellitus without complications; J45.909 Unspecified asthma, uncomplicated; F31.9 Bipolar disorder, unspecified; F20.9 Schizophrenia, unspecified; F12.90 Cannabis use, unspecified, uncomplicated; Z90.49 Acquired absence of other specified parts of digestive tract; Z98.51 Tubal ligation status; Z88.8 Allergy status to other drugs, medicaments and biological substances; Z79.899 Other long term (current) drug therapy
CPT/HCPCS: 81001; 81025; 96372; 99283; J0696; J3490

== ENCOUNTER 2021-11-26 23:58 | Emergency (ER) | payer MEDICAID ==
--- NOTE | 2021-11-27 01:54 | Emergency Department Report ---
ED Psych HPI - General Chief Complaint: Psych Stated Complaint: SI, WANT TO KILL BEST FRIEND AND BF MAN Time Seen by Provider: 11/27/21 01:29 Source: patient Mode of arrival: Ambulatory - History of Present Illness Initial Comments: 31-year-old obese female with extensive psychiatric history, who states she is currently "living on the streets" presents for evaluation of active suicidal ideation and homicidal ideation. She states to "I want to kill my best friend and her man customer she is accusing me of trying to take her man and doing stuff with him but I do not swing that way, I only do girls." Patient reports "she just put a bunch of stuff on Snapchat threatening me and now that is making me go off." Pt reports 2 weeks of auditory hallucinations. She has not been taking her regular psychiatric meds. LMP was 11/23/2021. MD Complaint: suicidal ideation, feels depressed Associated Psychiatric Symptoms: depression, suicidal ideation, homicidal ideation, racing thoughts, auditory hallucinations Quality: constant Improves With: none Worsens With: none Associated Symptoms: denies other symptoms Treatments Prior to Arrival: none If Self Harm: admits thoughts of, has plan - Related Data Home Medications Medication Instructions Recorded Confirmed Last Taken haloperidoL [Haldol] 5 mg PO QHS 08/20/18 03/05/20 08/20/18 levETIRAcetam [Keppra TAB] 1,000 mg PO BID 03/05/20 03/05/20 Unknown Previous Rx's Medication Instructions Recorded Last Taken Type Fluconazole [Diflucan TAB] 100 mg PO QDAY #2 tablet 11/24/21 Unknown Rx Sulfamethoxazole/Trimethoprim 1 each PO BID #10 tablet 11/24/21 Unknown Rx [Bactrim DS TAB] Sulfamethoxazole/Trimethoprim 1 each PO BID #10 tablet 11/25/21 Unknown Rx [Bactrim DS TAB] Allergies Allergy/AdvReac Type Severity Reaction Status Date / Time aripiprazole [From Abilify] Allergy Hives Verified 08/20/18 17:43 chlorpromazine Allergy Hives Verified 08/20/18 17:43 [From Thorazine] ED Review of Systems ROS: Stated complaint: SI, WANT TO KILL BEST FRIEND AND BF MAN Other details as noted in HPI Comment: All other systems reviewed and negative ED Past Medical Hx - Past Medical History Hx Hypertension: No Hx Diabetes: Yes Hx Deep Vein Thrombosis: No Hx Renal Disease: No Hx Sickle Cell Disease: No Hx Seizures: Yes (last seizures 3 mths ago) Hx Psychiatric Treatment: Yes (Bipolar, Schizophrenia) Hx Asthma: Yes Hx HIV: No Additional medical history: fibroids, Obesity - Surgical History Hx Cholecystectomy: Yes Additional Surgical History: Tubal Ligation, left wrist and left ankle - Social History Smoking Status: Current Every Day Smoker Substance Use Type: Marijuana - Medications Home Medications: Home Medications Medication Instructions Recorded Confirmed Last Taken Type haloperidoL [Haldol] 5 mg PO QHS 08/20/18 03/05/20 08/20/18 History levETIRAcetam [Keppra TAB] 1,000 mg PO BID 03/05/20 03/05/20 Unknown History Fluconazole [Diflucan TAB] 100 mg PO QDAY #2 tablet 11/24/21 Unknown Rx Sulfamethoxazole/Trimethoprim 1 each PO BID #10 tablet 11/24/21 Unknown Rx [Bactrim DS TAB] Sulfamethoxazole/Trimethoprim 1 each PO BID #10 tablet 11/25/21 Unknown Rx [Bactrim DS TAB] ED Physical Exam - General Limitations: No Limitations General appearance: alert, in no apparent distress - Head Head exam: Present: atraumatic, normocephalic, normal inspection - Eye Eye exam: Present: normal appearance, PERRL, EOMI, scleral icterus - ENT ENT exam: Present: normal exam, mucous membranes moist, normal external ear exam - Neck Neck exam: Present: normal inspection, full ROM, lymphadenopathy - Respiratory Respiratory exam: Present: normal lung sounds bilaterally - Cardiovascular Cardiovascular Exam: Present: regular rate, normal rhythm, normal heart sounds - GI/Abdominal GI/Abdominal exam: Present: soft, normal bowel sounds. Absent: distended, tenderness, guarding, rebound, rigid - Extremities Exam Extremities exam: Present: normal inspection, full ROM, tenderness, normal capillary refill - Neurological Exam Neurological exam: Present: alert, oriented X3, CN II-XII intact, normal gait, motor sensory deficit, reflexes normal - Psychiatric Psychiatric exam: Present: agitated, homicidal ideation, suicidal ideation - Skin Skin exam: Present: warm, dry, intact, normal color ED Course Vital Signs 11/27/21 11/27/21 11/27/21 00:44 01:28 01:40 Temperature 98.3 F 98.6 F Pulse Rate 61 76 Respiratory 18 18 Rate Blood Pressure 154/84 Blood Pressure 136/70 [Right] O2 Sat by Pulse 99 96 99 Oximetry - Reevaluation(s) Reevaluation #1: 11/27/21 01:54 pt asleep but easily arousable; nad; ED Medical Decision Making - Lab Data Result diagrams: 11/27/21 01:33 - Medical Decision Making 31yo F p/w SI/HI, and auditory hallucinations. Patient's urinalysis and urine hCG remain pending. However patient was seen on November 24, 2021 and then again on November 25, 2021, and at that time both urine hCG's were negative. Pt has been medically cleared. 1013 form signed. Pt to be held in psychiatric area until she can be evaluated by Mental Health this morning. Final disposition will be made by mental health provider Critical care attestation.: If time is entered above; I have spent that time in minutes in the direct care of this critically ill patient, excluding procedure time. ED Disposition Clinical Impression: Homicidal ideations Disposition: 30 STILL A PATIENT Is pt being admited?: No Does the pt Need Aspirin: No Condition: Stable
[2021-11-27 02:04] LABS: Basophils % (Auto) 0.5 % (0.0-1.8); Eosinophils # (Auto) 0.4 K/mm3 (0.0-0.4); Eosinophils % (Auto) 4.5 % (0.0-4.3); Hematocrit 33.8 % (30.3-42.9); Lymphocytes # (Auto) 2.7 K/mm3 (1.2-5.4); Lymphocytes % (Auto) 28.5 % (13.4-35.0); Mean Corpuscular HGB Conc 33 % (30-34); Mean Corpuscular Volume 81 fl (79-97); Monocytes # (Auto) 0.7 K/mm3 (0.0-0.8); Monocytes % (Auto) 7.7 % (0.0-7.3); Platelet Count 278 K/mm3 (140-440); Red Blood Count 4.17 M/mm3 (3.65-5.03); Red Cell Distribution Width 15.3 % (13.2-15.2)
[2021-11-27 02:07] LABS: BUN/Creatinine Ratio 18; Blood Urea Nitrogen 9 mg/dL (7-17); Calcium 8.7 mg/dL (8.4-10.2); Hemolysis Index 64
--- NOTE | 2021-11-27 10:55 | Consultation ---
History of Present Illness - Reason for Consult Consult date: 11/27/21 Reason for consult: Homicidal - History of Present Psychiatric Illness The patient was seen today. She appears irritable. She says she wants to kill her best friend her her best friend's . The patient says "I want forget about it or regret it when I kill them." She says she "plans to shoot them." She denies thoughts of self harm. The patient also endorses visual hallucinations. She says she is seeing blood. The patient denies any illicit drug use outside of [facility]. She says she is single, homeless and disabled. The patient says she has a history of bipolar. She says she did not remember her meds. REVIEW OF SYSTEMS Constitutional: Negative for weight loss ENT: Negative for stridor Respiratory: Negative for cough or hemoptysis All other systems reviewed and are negative MENTAL STATUS General Appearance and Behavior: age appropriate, good eye contact, cooperative with questioning and polite, irritable Cooperation: Cooperative Psychomotor Behavior: within normal limits Mood: agitated Affect and affective range: Congruent with stated mood Thought Process: goal directed Thought Content: Homicidal Speech: Normal volume and Regular rate and rhythm Suicidal Ideation: Denies Homicidal Ideation: Yes Hallucinations: Visual Impulse Control: Impaired Insight and Judgment: Limited Memory: Limited Attention: Normal Orientation: alert and oriented Assessment Bipolar Disorder Treatment Plan 1013 Haldol 1mg po BID Depakote DR 125mg po BID Trazodone 50mg po qhs Medical: per primary Disposition: Recommend acute psychiatric inpatient treatment Will follow. Thanks. Case staffed with Dr. Tineo Medications and Allergies Allergies Allergy/AdvReac Type Severity Reaction Status Date / Time aripiprazole [From Abilify] Allergy Hives Verified 08/20/18 17:43 chlorpromazine Allergy Hives Verified 08/20/18 17:43 [From Thorazine] Home Medications Medication Instructions Recorded Confirmed Last Taken Type haloperidoL [Haldol] 5 mg PO QHS 08/20/18 03/05/20 08/20/18 History levETIRAcetam [Keppra TAB] 1,000 mg PO BID 03/05/20 03/05/20 Unknown History Fluconazole [Diflucan TAB] 100 mg PO QDAY #2 tablet 11/24/21 Unknown Rx Sulfamethoxazole/Trimethoprim 1 each PO BID #10 tablet 11/24/21 Unknown Rx [Bactrim DS TAB] Sulfamethoxazole/Trimethoprim 1 each PO BID #10 tablet 11/25/21 Unknown Rx [Bactrim DS TAB] Mental Status Exam - Vital signs Last Vital Signs Temp 98.4 F 11/27/21 10:41 Pulse 60 11/27/21 10:41 Resp 18 11/27/21 10:41 BP 100/52 11/27/21 10:41 Pulse Ox 100 11/27/21 10:41 Results Result Diagrams: 11/27/21 01:33 11/27/21 01:33 Abnormal lab results 11/27/21 11/27/21 11/27/21 Range/Units 01:33 01:33 01:38 MCH 26 L (28-32) pg RDW 15.3 H (13.2-15.2) % Gregory % (Auto) 7.7 H (0.0-7.3) % Eos % (Auto) 4.5 H (0.0-4.3) % Potassium 3.5 L (3.6-5.0) mmol/L Creatinine 0.5 L (0.6-1.2) mg/dL Salicylates < 0.3 L (2.8-20.0) mg/dL Acetaminophen (10.0-30.0) ug/mL 11/27/21 Range/Units 01:38 MCH (28-32) pg RDW (13.2-15.2) % Gregory % (Auto) (0.0-7.3) % Eos % (Auto) (0.0-4.3) % Potassium (3.6-5.0) mmol/L Creatinine (0.6-1.2) mg/dL Salicylates (2.8-20.0) mg/dL Acetaminophen 5.0 L (10.0-30.0) ug/mL All other labs normal.
--- NOTE | 2021-11-27 11:37 | Event Note ---
Date: 11/27/21 vss, no distress, medicallyc leared 1013, awaiting transfer to psych facility
[2021-11-27] MEDS: DIVALPROEX DR 125 MG TAB PO SCH ×2 (12:16→22:19)
[2021-11-27] MEDS: HALOPERIDOL 1 MG TAB PO SCH ×2 (12:16→22:19)
[2021-11-27 16:23] LABS: Bilirubin,Urine Negative (Negative); Blood,Urine 1+ (Negative)
[2021-11-27 16:31] LABS: Bacteria,Urine 2+ /HPF (Negative); Mucus,Urine 3+ /HPF
[2021-11-27 19:32] LABS: Amphetamine Screen,Urine PRESUMPTIVE NEGATIVE; Benzodiazepines Screen,Urine PRESUMPTIVE NEGATIVE; Cannabinoid Screen,Urine PRESUMPTIVE POSITIVE; Cocaine Screen,Urine PRESUMPTIVE NEGATIVE; Methadone Screen,Urine PRESUMPTIVE NEGATIVE; Opiate Screen,Urine PRESUMPTIVE NEGATIVE
[2021-11-27 21:38] VITALS: BP 115/55
[2021-11-27] MEDS ORDERED: traZODone 50 MG TAB PO SCH (22:00)
== END 2021-11-28 01:04 | disposition still patient (30) ==
LOC: ED 23:58 → EEVIPCON 23:58 → ED 11-28 01:04
DX: R45.850 Homicidal ideations (principal); R45.851 Suicidal ideations; Z20.822 Contact with and (suspected) exposure to COVID-19; E11.9 Type 2 diabetes mellitus without complications; F31.9 Bipolar disorder, unspecified; F20.9 Schizophrenia, unspecified; J45.909 Unspecified asthma, uncomplicated; Z90.49 Acquired absence of other specified parts of digestive tract; Z98.51 Tubal ligation status; Z88.8 Allergy status to other drugs, medicaments and biological substances; Z79.899 Other long term (current) drug therapy
CPT/HCPCS: 36415; 80048; 80307; 81001; 84703; 85025; 87086; 99285; U0003; 80320; G0480